=== PATIENT | male | born 1950 | race Two or more races ===

== ENCOUNTER 2016-11-23 09:19 | Day surgery (SDC) | payer MEDICARE, MEDICAID ==
[2016-11-23 10:03] LABS: HEMATOCRIT 38.1 % (37.9-51.0); HEMOGLOBIN 12.1 g/dL (13.5-17.0); HGB HCT DIFFERENCE -1.8; MEAN CORPUSCULAR HGB CONC 31.8 g/dL (32.0-36.0); MEAN CORPUSCULAR VOLUME 94 fl (80-97); RED BLOOD COUNT 4.04 10^6/uL (4.35-5.55); RED CELL DISTRIBUTION WIDTH 17.7 % (11.5-14.0); WHITE BLOOD COUNT 4.9 10^3/uL (4.0-10.5)
[2016-11-23 10:10] LABS: PARTIAL THROMBOPLASTIN TIME 31.3 SEC (23.5-35.8); PROTHROMBIN TIME 14.6 SEC (11.4-15.4)
[2016-11-23] MEDS ORDERED: LIDOCAINE 0.5% INJ-PF (5 MG/ML) 50 ML SDV ONE (10:17)
[2016-11-23] MEDS ORDERED: MIDAZOLAM 2 MG/2 ML INJ ONE (10:19)
[2016-11-23] MEDS ORDERED: FENTANYL CITRATE INJ/PF 100 MCG/2 ML AMPUL ONE (10:19)
[2016-11-23] MEDS ORDERED: HEPARIN SOD (PORCINE) 5,000 UNIT/ML 1 ML SYRINGE ONE (10:20)
[2016-11-23 10:46] LABS: BAND NEUTROPHILS % (MANUAL) 3 % (3-5); BASOPHILS % (MANUAL) 2 % (0-2); EOSINOPHILS % (MANUAL) 1 % (0-6); LYMPHOCYTES % (MANUAL) 14 % (13-45)
[2016-11-23 10:48] LABS: TOTAL CELLS COUNTED 100
[2016-11-23 10:53] LABS: ANISOCYTOSIS 1+; POLYCHROMASIA SLIGHT; TOXIC VACUOLATION PRESENT
[2016-11-23 10:54] LABS: ROULEAUX SLIGHT
--- NOTE | 2016-11-23 11:23 | PDOC H&P ---
General Chief Complaint: Fistula malfunction is noted on hemodialysis, suggestive of inflow stenosis. He was referred across for evaluation and and the correction. The goal is prolonged use of this tristan fistula. - Diagnosis (1) Diabetes type 2, uncontrolled Is this a Current Diagnosis?: Yes (2) Dialysis AV fistula malfunction Is this a Current Diagnosis?: Yes (3) ESRD (end stage renal disease) on dialysis Is this a Current Diagnosis?: Yes - Current Medications/Allergies Home Medications: Acetaminophen [Tylenol 325 mg Tablet] 650 mg PO Q4H PRN 04/06/16 Calcitriol 0.5 mcg PO DAILY 04/06/16 Carvedilol [Coreg 12.5 mg Tablet] 1 tab PO BID 04/06/16 Clonidine HCl [Clonidine HCl ER] 0.1 mg PO Q12 04/06/16 Folic Acid/Vitamin B Comp W-C [Nephrocaps Multiple Vitamin Capsule] 1 cap PO DAILY 04/06/16 Insulin Glargine,Hum.rec.anlog [Lantus] 10 unit SQ QPM 04/06/16 Isosorbide Mononitrate [Imdur 30 mg Tablet.er] 1 tab PO DAILY 04/06/16 Loperamide HCl [Imodium 2 mg Capsule] 1 cap PO Q8H PRN 04/06/16 Multivitamin/Iron/Folic Acid [Centrum Complete Multivit Tab] 1 tab PO DAILY Furosemide [Lasix 40 mg Tablet] 40 mg PO BID 09/09/16 Insulin Lispro [Humalog] 09/09/16 Allergies/Adverse Reactions: rosuvastatin [Rosuvastatin] Allergy (Verified 03/06/16 10:07) Past Medical History Cardiac Medical History: Reports: Congestive Heart Failure - Chronic CHF with EF of 30%, Myocardial Infarction - CHF, "POSSIBLE HEART ATTACK", Hyperlipidema, Hypertension, Peripheral Vascular Disease Denies: Coronary Artery Disease Pulmonary Medical History: Denies: Asthma, Bronchitis, Chronic Obstructive Pulmonary Disease (COPD), Pneumonia, Tuberculosis Neurological Medical History: Denies: Seizures Endocrine Medical History: Reports: Diabetes Mellitus Type 2 Renal/ Medical History: Reports: End Stage Renal Disease Musculoskeltal Medical History: Denies: Arthritis Psychiatric Medical History: Reports: Depression Hematology: Reports: Anemia Past Surgical History Past Surgical History: Reports: Cholecystectomy, Orthopedic Surgery - Bilateral BKA, Vascular Surgery - Left arm AV fistula Denies: Pacemaker Family History Family History: DM, Malignancy Parental Family History Reviewed: Yes Children Family History Reviewed: No Sibling(s) Family History Reviewed.: No Social History Smoking Status: Unknown if Ever Smoked Frequency of Alcohol Use: None Hx Recreational Drug Use: No Drugs: None Hx Prescription Drug Abuse: No Physical Exam Vital Signs: Temp Pulse Resp BP Pulse Ox 98.3 F 71 18 149/94 H 95 11/23/16 09:15 11/23/16 10:30 11/23/16 09:15 11/23/16 09:15 11/23/16 09:15 Intake & Output 11/22/16 11/23/16 11/24/16 06:59 06:59 06:59 Weight 74.843 kg Additional comments: A well-developed well-nourished male. Mildly decreased, thin body habitus. No acute distress. Eyes membranes is pink and moist, sclerae anicteric. Respiratory no shortness of breath. Breath sounds are normal and equal bilaterally. Cardiac: Heart sounds 1 and 2 heard, no murmurs. Upper extremities show normal range of movement and pulsatile to the radials. Normal capillary refill. A cephalic to radial fistula is appreciated. In the left upper extremity. Somewhat soft suggesting inflow stenosis. Psychiatric the patient is alert, oriented, judgment, memory, insight normal Impression/Plan Plan: In this patient with an established left cephalic to radial fistula in mid forearm, extreme arterial calcification with the next very unusually challenging anastomosis, improvement is hoped for by judicious dilatation. The risks include infection, bleeding, heart, lung complications, loss of fistula. The patient is agreeable.
--- NOTE | 2016-11-23 11:34 | PDOC DISCHARGE SUMMARY ---
Discharge Summary (SDC) - Discharge Final Diagnosis: #1 malfunctioning AV fistula. #2 end-stage renal disease on hemodialysis. #3 diabetes mellitus type II. #4 peripheral vascular disease. Date of Surgery: 11/23/16 Discharge Date: 11/23/16 Condition: Fair Treatment or Instructions: #1 activities within moderation encouraged. #2 follow up in my office by appointment in about 1 week. Call for appointment. #3 the wounds covered clean and dry until office visit. #4 hold off on school/work until evaluation in office. #5 may shower in 48 hours, keep operated area as dry as possible. #6 discharge from ambulatory to when ASU criteria met. #7 medications per medication reconciliation sheet. Discharge Diet: Diabetic Respiratory Treatments at Home: Deep Breathing/Coughing Discharge Activity: Activity As Tolerated Report the Following to Your Physician Immediately: Unusual Bleeding
--- NOTE | 2016-11-23 11:40 | Operative Report ---
Operative Report DATE OF SURGERY: 11/23/16 PREOPERATIVE DIAGNOSIS: #1 malfunctioning PermCath catheter. #2 end-stage renal disease on hemodialysis. #3 diabetes mellitus type II. #4 peripheral vascular disease POSTOPERATIVE DIAGNOSIS: #1 malfunctioning PermCath catheter. #2 end-stage renal disease on hemodialysis. #3 diabetes mellitus type II. #4 peripheral vascular disease OPERATION: #1 needle access into fistula. #2 angioplasty. #3 angiogram and interpretation. SURGEON: ANN NOGUEIRA WOOD BARKER: none ANESTHESIA: Moderate Sedation TISSUE REMOVED OR ALTERED: Not applicable. COMPLICATIONS: None ESTIMATED BLOOD LOSS: 2 mL. INTRAOPERATIVE FINDINGS: Of a well-founded left forearm radial artery to cephalic fistula established in about mid forearm. Relatively soft initially, suggesting inflow disease. Angiogram demonstrates stenosis in the perianastomotic segment. This was further confirmed by relative obstruction of the flow with the unexpanded 5 mm balloon . This was all graft resolved after dilatation with excellent flow into the fistula even with the uninflated catheter. Also the fistula which was somewhat soft initially firmed up to an appropriate extent. PROCEDURE: PROCEDURE: After verifying the procedure and having obtained informed consent, the patient's left arm and forearm were prepared with Chlorhexidine and draped out with sterile linen. Local anesthesia infiltrated. Percutaneous access into the fistula ,[retrograde], obtained about [15 cm] from the arteriovenous anastomosis using a micro puncture needle followed by micro puncture wire and then a micro puncture catheter. findings. Angioplasty was elected. A 0.035 [place] wire was inserted, and over this, a 6 Mal[place] short introducer was placed, this was followed by a [5] angioplasty balloon . Angioplasty was now done at the distal radial artery just before the anastomosis and over the anastomotic and perianastomotic segment. This was done very carefully up to 6 carlos sustained for 2 minutes. Angiogram demonstrated successful outcome. T Completion angiogram demonstrated [satisfactory result]. The instrumentation was now withdrawn over moderate pressure for 10 minutes. Dressings applied, procedure concluded. Exposure time: 0.4 minutes Radiation: 2 aleksandra per centimeter squared Contrast: 25 mL of Isovue-M 300 low osmolality. DICTATING PHYSICIAN: ANN TAVAREZ M.D. cc: ANN TAVAREZ M.D. ([id number]) >>
--- NOTE | 2016-11-23 12:14 | EKG REPORT ---
SEVERITY:- ABNORMAL ECG - SINUS RHYTHM LAFB FIRST DEGREE AV BLOCK LVH WITH IVCD, AND SECONDARY REPOL ABNRM : Confirmed by: Tucker Wade MD 23-Nov-2016 12:13:26
[2016-11-23 12:52] VITALS: BP 145/89
== END 2016-11-23 12:30 | disposition home or self-care (01) ==
LOC: CCL 09:19
PROVIDERS: ATTEND Surgery
PROC: 057F3DZ Dilation of Left Cephalic Vein with Intraluminal Device, Percutaneous Approach (ICD-10-PCS; principal; 2016-11-23)
DX: T82.858A Stenosis of other vascular prosthetic devices, implants and grafts, initial encounter (principal); Y83.2 Surgical operation with anastomosis, bypass or graft as the cause of abnormal reaction of the patient, or of later complication, without mention of misadventure at the time of the procedure; Z99.2 Dependence on renal dialysis; N18.6 End stage renal disease; E11.9 Type 2 diabetes mellitus without complications; Z79.899 Other long term (current) drug therapy; Z79.4 Long term (current) use of insulin; Z79.01 Long term (current) use of anticoagulants; I73.9 Peripheral vascular disease, unspecified
CPT/HCPCS: 96372; 36415; 85025; 85610; 85730; 36902; 71010; 93005; 93010; C1752; C1725; Q9967; C1769; J2250; J1644 ×2; J3010; J3490; 36901

== ENCOUNTER 2016-11-26 15:01 | Inpatient (IN) | payer MEDICARE, MEDICAID ==
[~2016-11-26 15:01] MED LIST: LIDOCAINE 2% INJ-PF (20 MG/ML) 10 ML AMPUL ONE; PHENYLEPHRINE HCL INJ/PF 10 MG/1 ML SDV ONE; SUCCINYLCHOLINE CHLORIDE INJ 200 MG/10 ML VIAL ONE
[2016-11-26] MEDS ORDERED: PROMETHAZINE HCL 25 MG TABLET PO ONE (15:40)
--- NOTE | 2016-11-26 15:57 | ER Document Report ---
ED Blood Pressure Problem - General TRAVEL OUTSIDE OF THE [place] IN LAST 30 DAYS: No - General Chief Complaint: Low Blood Pressure Stated Complaint: BLOOD PRESSURE PROBLEM Notes: Patient is a 66-year-old male who presents emergency Department, after completing dialysis at [facility], for hypotension. Patient has end-stage renal disease secondary to type II diabetes and receives dialysis every Wednesday and Wednesday. He was sent over today for hypotension after he completed dialysis. Otherwise patient is admitting to 2 days of nausea, vomiting, diarrhea and abdominal pain. Pain is generalized to all over without any specific location. Pain is described as contant ache with intermittent stabbing pain with distension. He states he has become more distended over the course over the past two days. In regards to his diarrhea, he states he has had 2-3 BM;s daily that have been loose without evidence of BRBPR or dark tarry stools. Decreased appetite and difficulty sleeping due to pain Past medical history significant for end-stage renal disease on HD T/R/Sa, congestive heart failure, diabetes type II, edema, essential hypertension, diverticulosis Business Process Analyst is Dr. Osei Cards is Dr. Marino in [place] PCP: Shirley Connolly (CARLOS BURRELL) - Related Data Allergies/Adverse Reactions: rosuvastatin [Rosuvastatin] Allergy (Verified 03/06/16 10:07) Past Medical History - General Information source: Patient, Outside Facility Records - Social History Smoking Status: Unknown if Ever Smoked Family History: DM, Malignancy - Past Medical History Cardiac Medical History: Reports: Hx Congestive Heart Failure - Chronic CHF with EF of 30%, Hx Heart Attack - CHF, "POSSIBLE HEART ATTACK", Hx Hypercholesterolemia, Hx Hypertension, Hx Peripheral Vascular Disease Denies: Hx Coronary Artery Disease Pulmonary Medical History: Denies: Hx Asthma, Hx Bronchitis, Hx COPD, Hx Pneumonia, Hx Tuberculosis Neurological Medical History: Denies: Hx Cerebrovascular Accident, Hx Seizures Endocrine Medical History: Reports: Hx Diabetes Mellitus Type 2 Renal/ Medical History: Reports: Hx End Stage Renal Disease, Hx Hemodialysis - Wednesday, Hx Peritoneal Dialysis - Previously on peritoneal dialysis, now on hemodialysis Musculoskeltal Medical History: Denies Hx Arthritis Psychiatric Medical History: Reports: Hx Depression Past Surgical History: Reports: Hx Cholecystectomy, Hx Orthopedic Surgery - Bilateral BKA, Hx Vascular Surgery - Left arm AV fistula. Denies: Hx Pacemaker - Immunizations Hx Diphtheria, Pertussis, Tetanus Vaccination: Yes Hx Pneumococcal Vaccination: 01/18/15 Review of Systems - Review of Systems Constitutional: No symptoms reported EENT: No symptoms reported Cardiovascular: No symptoms reported Respiratory: No symptoms reported Gastrointestinal: See HPI Genitourinary: No symptoms reported Male Genitourinary: No symptoms reported Musculoskeletal: No symptoms reported Skin: No symptoms reported Hematologic/Lymphatic: No symptoms reported Neurological/Psychological: No symptoms reported Physical Exam - Vital signs Vitals: BP 100/92 H 11/26/16 16:11 - Notes Notes: PHYSICAL EXAM GENERAL: Alert, interacts well. HEAD: Normocephalic, atraumatic. EYES: Pupils equal, round, and reactive to light. Extraocular movements intact. ENT: Oral mucosa moist, tongue midline. NECK: Full range of motion. Supple. Trachea midline. LUNGS: Clear to auscultation bilaterally, no wheezes, rales, or rhonchi. No respiratory distress. HEART: Regular rate and rhythm. No murmurs, gallops, or rubs. ABDOMEN: Firm, distended with superficial and deep tenderness to palpation. + guarding, rebound, and rigidity.. Bowel sounds present in all 4 quadrants. EXTREMITIES: Moves upper and lower extremities spontaneously. B/l BKA. No edema , radial and dorsalis pedis pulses 2/4 bilaterally. No cyanosis. NEUROLOGICAL: Alert and oriented x3. Normal speech. PSYCH: Normal affect, normal mood. SKIN: Warm, dry, normal turgor. No rashes or lesions noted. (CARLOS BURRELL) Course - Laboratory Result Diagrams: 11/26/16 17:25 11/26/16 16:30 - Diagnostic Test Radiology reviewed: Reports reviewed - D/w radiologist - Consults quann Time consulted: 16:50 Consulted provider: will come to ER busteed Time consulted: 16:50 Consulted provider: will come to ER - Re-evaluation Re-evalutation: 11/26/16 16:02 Independently evaluated patient patient does have diffusely tender abdomen with voluntarily guarding and rebound tenderness. Will perform CAT scan agree with plan (BRIAN BARFIELD) 11/26/16 16:02 Patient is a 66 year old male who is HDS, NAD and afebrile however patient is persistently hypotensive and in comparisson to vitals at [facility] he seems to be trending down. Given his diffuse tenderness, will send labs and CT of abd/pelvis 11/26/16 1630 Received a phone call from radiologist approximately 430pm to discuss CT A/P which reveals concern for perforated bowel given evidence of free abdominal air as well as air seen within the biliary system and portal vein/sup mesenteric vein. [place] since [id number] Patient initiated on sepsis protocol with orders for LR IVF as well as Vanc / Zosyn. Labs pending, given he is a difficult stick and HD dry after HD. I have consulted surgeon air conditioning specialist Dr. Edgar Haynes and Hospitalist Dr. nicol Tavarez for admission, phone call placed to Nephrology Dr. Duke Osei for HD consult if patient remains in our ICU he will require HD within 48 hours. I have reviewed this case up to this point with supervising physician Dr. Brian Barfield per APC guidelines and protocol 11/26/2016 1850 The patient has been evaluated at the bedside by Dr. Haynes and Dr. Tavarez. Plan as of now is to suspend current DNR status and to resume after the surgery , emergent exploratory laparotomy and dispo planning to be completed by Dr. Tavarez given findings of this procedure. I myself was present for discussion of the plan to which the patient and his express understanding. At this time, the patient admits to 4/5 abdominal pain but no nausea. Otherwise he states he feels okay given the current circumstances. 11/26/16 19:04 (CARLOS BURRELL) - Vital Signs Vital signs: Temp Pulse Resp BP Pulse Ox 100/92 H 11/26/16 16:11 - Laboratory Laboratory results interpreted by me: 11/26/16 11/26/16 11/26/16 16:30 17:25 17:25 Hgb 12.9 L MCHC 31.3 L RDW 17.1 H Plt Count 124 L Seg Neuts % (Manual) 82 H Band Neutrophils % 8 H Lymphocytes % (Manual) 3 L PT 17.0 H Sodium 136.9 L Chloride 93 L BUN 30 H Creatinine 3.67 H Est GFR ( Amer) 20 L Est GFR (Non-Af Amer) 17 L Glucose 209 H Total Protein 5.8 L Albumin 3.3 L Lipase 10.3 L - Consults rosmery Reason for consultation: 11/26/16 19:03 perforated bowel (CARLOS BURRELL) busteed Reason for consultation: 11/26/16 19:03 hospital admission (CARLOS BURRELL) Critical Care Note - Critical Care Note Total time excluding time spent on procedures (mins): 35 - Critical Care Note Comments: Critical care time for patient education on diagnosis and care planning, consults in the ED for hospitalist and surgery. Bedside family discussion for care plan. (CARLOS BURRELL) Discharge - Discharge Admitting Provider: Hospitalist - Discharge Clinical Impression: Perforated bowel Condition: Stable Disposition: ADMITTED INPATIENT Referrals: SHIRLEY CONNOLLY MD [Primary Care Provider] - Follow up as needed
[2016-11-26] MEDS ORDERED: ONDANSETRON HCL INJ/PF 4 MG/2 ML SDV IV ONE (16:04)
[2016-11-26 16:55] LABS: ALANINE AMINOTRANSFERASE 25 U/L (21-72); ALBUMIN 3.3 g/dL (3.5-5.0); ALKALINE PHOSPHATASE 85 U/L (38-126); ANION GAP 14 (5-19); ASPARTATE AMINO TRANSFERASE 18 U/L (17-59); BILIRUBIN,TOTAL 0.9 mg/dL (0.2-1.3); BLOOD UREA NITROGEN 30 mg/dL (7-20); CALCIUM 8.6 mg/dL (8.4-10.2); CARBON DIOXIDE 30 mmol/L (22-30); CHLORIDE 93 mmol/L (98-107); CREATININE RESULT 3.67 mg/dL (0.52-1.25); GLUCOSE 209 mg/dL (75-110); LIPASE 10.3 U/L (23-300); POTASSIUM 4.3 mmol/L (3.6-5.0); SODIUM 136.9 mmol/L (137-145); TOTAL PROTEIN 5.8 g/dL (6.3-8.2)
[2016-11-26] MEDS ORDERED: PIPERACILLIN/TAZOBACTAM 3.375 GM VIAL IV ONE (16:57)
[2016-11-26] MEDS ORDERED: VANCOMYCIN HCL INJ 1000 MG VIAL IV ONE (16:57)
[2016-11-26] MEDS ORDERED: NORMAL SALINE 1000 ML 1,000 ML IV PRN (17:00)
[2016-11-26] MEDS ORDERED: RINGERS SOLUTION,LACTATED 1,000 ML IV PRN ×2 (17:07→21:41)
[2016-11-26 17:41] LABS: HEMATOCRIT 41.3 % (37.9-51.0); HEMOGLOBIN 12.9 g/dL (13.5-17.0); HGB HCT DIFFERENCE -2.6; MEAN CORPUSCULAR HEMOGLOBIN 29.5 pg (27.0-33.4); MEAN CORPUSCULAR HGB CONC 31.3 g/dL (32.0-36.0); MEAN CORPUSCULAR VOLUME 94 fl (80-97); RED BLOOD COUNT 4.38 10^6/uL (4.35-5.55); RED CELL DISTRIBUTION WIDTH 17.1 % (11.5-14.0); WHITE BLOOD COUNT 7.6 10^3/uL (4.0-10.5)
[2016-11-26 17:45] LABS: PARTIAL THROMBOPLASTIN TIME 33.7 SEC (23.5-35.8)
[2016-11-26 18:01] LABS: BAND NEUTROPHILS % (MANUAL) 8 % (3-5); BASOPHILS % (MANUAL) 0 % (0-2); EOSINOPHILS % (MANUAL) 0 % (0-6); LYMPHOCYTES % (MANUAL) 3 % (13-45); TOTAL CELLS COUNTED 100
[2016-11-26 18:02] LABS: ANISOCYTOSIS 1+
[2016-11-26 18:03] LABS: BURR CELLS SLIGHT; OVALOCYTES 1+; POLYCHROMASIA SLIGHT
[2016-11-26] MEDS ORDERED: ACETAMINOPHEN 325 MG TABLET PO PRN (18:06)
[2016-11-26] MEDS ORDERED: ONDANSETRON HCL INJ/PF 4 MG/2 ML SDV IV PRN (18:06)
[2016-11-26] MEDS ORDERED: IPRATROPIUM/ALBUTEROL 0.5-2.5 MG/3 ML AMPUL NEB PRN (18:06)
[2016-11-26] MEDS ORDERED: VANCOMYCIN HCL 0 MG in DEXTROSE 5%-WATER 250 ML IV NR (18:15)
--- NOTE | 2016-11-26 18:28 | PDOC H&P ---
History of Present Illness Admission Date/PCP: SHIRLEY CONNOLLY Patient complains of: Abdominal pain and low blood pressure History of Present Illness: RADHA HURTADO JR is a 66 year old male who is a dialysis patient on Wednesday and Saturdays who also has a history of congestive heart failure and diabetes. The patient presented to dialysis today and during dialysis develop some relative hypotension and the patient reports that over the last 2 days she's had abdominal pain started out with periumbilical pain. Patient reports the pain was mild on Wednesday however became progressively worse and now he rates it as 9 out of 10. He has had some associated nausea vomiting diarrhea for the last 2 days also. He reports that he's not had any melena or bright red blood per rectum but has had some dark watery diarrhea. He denies having any chest pain or shortness of breath associated with this. Patient is also noted anorexia no chills or fevers. The patient because of abdominal pain had a CT scan done in the emergency room which shows air in the bowel wall as well as the portal system. It appears that this patient most likely has had a perforated viscus and the plan is for him to go to surgery emergently. Past Medical History Cardiac Medical History: Reports: Congestive Heart Failure - Chronic CHF with EF of 30%, Myocardial Infarction - CHF, "POSSIBLE HEART ATTACK", Hyperlipidema, Hypertension, Peripheral Vascular Disease Denies: Coronary Artery Disease Pulmonary Medical History: Denies: Asthma, Bronchitis, Chronic Obstructive Pulmonary Disease (COPD), Pneumonia, Tuberculosis Neurological Medical History: Denies: Seizures Endocrine Medical History: Reports: Diabetes Mellitus Type 2 Renal/ Medical History: Reports: End Stage Renal Disease Malignancy Medical History: Reports: None GI Medical History: Reports: Other - Hepatitis C Musculoskeltal Medical History: Denies: Arthritis Psychiatric Medical History: Reports: Depression Hematology: Reports: Anemia Past Surgical History Past Surgical History: Reports: Cholecystectomy, Orthopedic Surgery - Bilateral BKA, Vascular Surgery - Left arm AV fistula Denies: Pacemaker Social History Information Source: Patient Lives with: Family Smoking Status: Former Smoker Frequency of Alcohol Use: None Hx Recreational Drug Use: No Drugs: None Hx Prescription Drug Abuse: No - Advance Directive Resuscitation Status: Do Not Resuscitate - The patient and his both reiterated his desire to be a DO NOT RESUSCITATE. Family History Family History: CAD, DM, Malignancy Parental Family History Reviewed: Yes Children Family History Reviewed: No Sibling(s) Family History Reviewed.: No Medication/Allergy Home Medications: Acetaminophen [Tylenol 325 mg Tablet] 650 mg PO Q4H PRN 04/06/16 Calcitriol 0.5 mcg PO DAILY 04/06/16 Carvedilol [Coreg 12.5 mg Tablet] 1 tab PO BID 04/06/16 Clonidine HCl [Clonidine HCl ER] 0.1 mg PO Q12 04/06/16 Folic Acid/Vitamin B Comp W-C [Nephrocaps Multiple Vitamin Capsule] 1 cap PO DAILY 04/06/16 Insulin Glargine,Hum.rec.anlog [Lantus] 10 unit SQ QPM 04/06/16 Isosorbide Mononitrate [Imdur 30 mg Tablet.er] 1 tab PO DAILY 04/06/16 Loperamide HCl [Imodium 2 mg Capsule] 1 cap PO Q8H PRN 04/06/16 Multivitamin/Iron/Folic Acid [Centrum Complete Multivit Tab] 1 tab PO DAILY Lidocaine/Prilocaine [Emla Cream] 30 gm TP ONCALL PRN #1 cream.gm. MDD once Furosemide [Lasix 40 mg Tablet] 40 mg PO BID 09/09/16 Insulin Lispro [Humalog] 09/09/16 Allergies/Adverse Reactions: rosuvastatin [Rosuvastatin] Allergy (Verified 03/06/16 10:07) Review of Systems Constitutional: PRESENT: chills, weakness. ABSENT: weight gain, weight loss Eyes: ABSENT: visual disturbances Ears: ABSENT: hearing changes Cardiovascular: ABSENT: chest pain, dyspnea on exertion, edema, orthropnea, palpitations Respiratory: ABSENT: cough, hemoptysis Gastrointestinal: PRESENT: as per HPI Genitourinary: PRESENT: other - Patient is a dialysis patient and makes a small amount of urine daily still. Integumentary: ABSENT: rash, wounds Neurological: ABSENT: abnormal gait, abnormal speech, confusion, dizziness, focal weakness, syncope Psychiatric: ABSENT: anxiety, depression Endocrine: ABSENT: cold intolerance, heat intolerance, polydipsia, polyuria Hematologic/Lymphatic: ABSENT: easy bleeding, easy bruising Physical Exam Vital Signs: Temp Pulse Resp BP Pulse Ox 100/92 H 11/26/16 16:11 General appearance: PRESENT: no acute distress Head exam: PRESENT: atraumatic, normocephalic Eye exam: PRESENT: conjunctiva pink, EOMI, PERRLA, scleral icterus Ear exam: PRESENT: normal external ear exam Mouth exam: PRESENT: moist, tongue midline Neck exam: ABSENT: carotid bruit, JVD, lymphadenopathy, thyromegaly Respiratory exam: PRESENT: clear to auscultation kyree. ABSENT: rales, rhonchi, wheezes Cardiovascular exam: PRESENT: RRR. ABSENT: diastolic murmur, rubs, systolic murmur GI/Abdominal exam: PRESENT: diminished bowel sounds, distended, firm, hypoactive bowel sounds, rebound, tenderness - Periumbilical and lower abdomen tenderness. ABSENT: guarding Rectal exam: PRESENT: deferred Extremities exam: PRESENT: other - Bilateral BKA Neurological exam: PRESENT: alert, awake, oriented to person, oriented to place , oriented to time, oriented to situation Psychiatric exam: PRESENT: appropriate affect Skin exam: PRESENT: dry, intact, warm. ABSENT: cyanosis, rash Results Laboratory Results: 11/26/16 17:25 11/26/16 16:30 11/26/16 11/26/16 11/26/16 16:30 17:25 17:25 WBC 7.6 RBC 4.38 Hgb 12.9 L Hct 41.3 MCV 94 MCH 29.5 MCHC 31.3 L RDW 17.1 H Plt Count 124 L Seg Neutrophils % Not Reportable Lymphocytes % Not Reportable Monocytes % Not Reportable Eosinophils % Not Reportable Basophils % Not Reportable Absolute Neutrophils Not Reportable Absolute Lymphocytes Not Reportable Absolute Monocytes Not Reportable Absolute Eosinophils Not Reportable Absolute Basophils Not Reportable Sodium 136.9 L Potassium 4.3 Chloride 93 L Carbon Dioxide 30 Anion Gap 14 BUN 30 H Creatinine 3.67 H Est GFR ( Amer) 20 L Est GFR (Non-Af Amer) 17 L Glucose 209 H Lactic Acid 1.2 Calcium 8.6 Total Bilirubin 0.9 AST 18 ALT 25 Alkaline Phosphatase 85 Total Protein 5.8 L Albumin 3.3 L Lipase 10.3 L Impressions: Abdomen/Pelvis CT 11/26/16 16:04 IMPRESSION: Multiple dilated loops of bowel with fecalized material. There also appears to be air within the wall these all concerning for pneumatosis. There is also air seen within the biliary system and the portal vein/ superior mesenteric vein. These findings concerning for bowel necrosis which may be secondary to long-term obstruction and/or acute ischemia. There is also multiple lobules of air is seen within the abdomen concerning for free intra- abdominal air. The patient is noted to have extensive vascular calcifications throughout the abdomen the evaluation vascular system with limited without contrast. There also appears to be a point of narrowing seen in the distal ileum which could represent a transition point from obstruction. Assessment & Plan - Diagnosis (1) Sepsis Is this a current diagnosis for this admission?: YesPlan: The patient has a perforated viscus with air in the bowel wall as well as in the portal system. The general surgeon has evaluated the patient and agrees he needs emergent surgery and the patient will be taken to the OR immediately. This was discussed with the family that there is at least a 70% rate even with surgery. They are aware and are agreeable to go to surgery given that the alternative is almost certain 100% rate. Blood cultures have been obtained and we will give vancomycin, Zosyn, Flagyl. He is a dialysis patient so we will plan on transfer to a tertiary facility if he tolerates surgery. (2) Ischemic bowel disease Is this a current diagnosis for this admission?: YesPlan: Patient has free air in the peritoneum as well as air in the bowel wall and the portal system. Patient is to go to the OR urgently. He is getting IV fluids currently but he does have history of congestive heart failure and is a dialysis patient. He did have dialysis earlier today. (3) ESRD on hemodialysis Is this a current diagnosis for this admission?: YesPlan: The patient normally gets dialysis on Wednesday and Saturdays. Handouts a day but they stopped early because blood pressure dropped low. He typically runs around 150s systolically and the pressure dropped down to 90. (4) Diabetes type 2, uncontrolled Is this a current diagnosis for this admission?: YesPlan: We'll cover with sliding scale insulin. (5) Hypertension Is this a current diagnosis for this admission?: YesPlan: We'll hold and hypertensives for now given the fact that he has sepsis. (6) Anemia in chronic kidney disease Is this a current diagnosis for this admission?: Yes - Time Time Spent: 50 to 70 Minutes - Inpatient Certification Medical Necessity: Need for IV Antibiotics, Need for Surgery - Plan Summary Plan Summary: We'll admit to the intensive care unit after surgery and possibly transfer to a tertiary center afterwards.
[2016-11-26] MEDS ORDERED: FENTANYL CITRATE INJ/PF 250 MCG/5 ML AMPULE ONE (18:34)
[2016-11-26] MEDS ORDERED: KETAMINE HCL INJ 500 MG/10 ML VIAL ONE (18:34)
[2016-11-26] MEDS ORDERED: MORPHINE SULFATE 10 MG/ML INJ IV ONE (18:34)
[2016-11-26] MEDS ORDERED: HYDROMORPHONE HCL INJ/PF 2 MG/ML AMPULE ONE (18:34)
[2016-11-26] MEDS ORDERED: MIDAZOLAM 2 MG/2 ML INJ ONE (18:34)
[2016-11-26] MEDS ORDERED: EPHEDRINE SULFATE INJ 50 MG/1 ML AMPULE ONE (18:35)
[2016-11-26] MEDS ORDERED: PROPOFOL INJ 200 MG/20 ML VIAL IV ONE (18:35)
[2016-11-26] MEDS ORDERED: DEXMEDETOMIDINE INJ 80 MCG/20 ML VIAL IV ONE (18:35)
[2016-11-26] MEDS ORDERED: GLUCAGON,HUMAN RECOMB 1 MG INJ IM PRN (18:38)
[2016-11-26] MEDS ORDERED: DEXTROSE 40% GEL 15 GM TUBE PO PRN ×2 (18:38)
[2016-11-26] MEDS ORDERED: INSULIN REG, HUMAN 100 UNIT/ML 3 ML VIAL (PYX) SUBCUT PRN (18:38)
[2016-11-26] MEDS ORDERED: DEXTROSE 50%-WATER 25 GM/50 ML DISP.SYRIN IV PRN ×2 (18:38)
--- NOTE | 2016-11-26 18:45 | PDOC CONSULTATION ---
History of Present Illness Admission Date/PCP: SHIRLEY CONNOLLY History of Present Illness: RADHA HURTADO JR is a 66 year old male with hepatitis C, ischemic cardiomyopathy, diastolic dysfunction with reduced ejection fraction, mild pulmonary hypertension, diabetes status post bilateral BKAs, hyperlipidemia , hypertension, congestive heart failure, nephrolithiasis and end-stage renal disease on dialysis Wednesday//Wednesday. Today during dialysis he had hypertension and was sent to the ER. He also reveals that he's had increasing abdominal pain since Wednesday. He reports the pain is across the central abdomen. It is sharp. It is made worse with coughing or movement. 07/18. Sharp. Constant. Last ate at noon today. 2 chicken nuggets and less than half of a soda. He's had 3 days of diarrhea. He describes it as dark watery, unsure if melanotic. No bright red blood. Nausea and small volume emesis. Also reports fever, extreme weakness, poor sleep and loss of appetite over the same today. Occasional dry cough. Denies chills or shakes. Denies seizures, tremors, lightheadedness, dizziness, chest pain, shortness of breath, rash, itching, swelling, sinus drainage. Past Medical History Cardiac Medical History: Reports: Congestive Heart Failure - Chronic CHF with EF of 30%, Myocardial Infarction - CHF, "POSSIBLE HEART ATTACK", Hyperlipidema, Hypertension, Peripheral Vascular Disease, Other - Ischemic cardiomyopathy, diastolic dysfunction, reduced ejection fraction. Pulmonary Medical History: Reports: Other - Mild pulmonary hypertension. Endocrine Medical History: Reports: Diabetes Mellitus Type 2 Renal/ Medical History: Reports: End Stage Renal Disease, Nephrolithiasis Malignancy Medical History: Reports: None GI Medical History: Reports: Hepatitis - Hepatitis C Musculoskeltal Medical History: Reports: Other - Bilateral BKAs Psychiatric Medical History: Reports: Depression Hematology: Reports: Anemia Infectious Medical History: Reports: Hepatitis C Past Surgical History Past Surgical History: Reports: Cholecystectomy - Open cholecystectomy, Orthopedic Surgery - Bilateral BKA, Vascular Surgery - Left arm AV fistula, Other - Previous peritoneal dialysis catheter. Denies: Pacemaker Social History Information Source: Patient Lives with: Spouse/Significant other Smoking Status: Never Smoker Frequency of Alcohol Use: None - Previously a heavy drinker. None in over 5 years. Hx Recreational Drug Use: No Drugs: None Hx Prescription Drug Abuse: No - Advance Directive Resuscitation Status: Do Not Resuscitate - The patient and his both reiterated his desire to be a DO NOT RESUSCITATE. Family History Family History: CAD, DM, Malignancy, Other - Congestive heart failure Parental Family History Reviewed: Yes Children Family History Reviewed: Yes Sibling(s) Family History Reviewed.: Yes Medication/Allergy Home Medications: Acetaminophen [Tylenol 325 mg Tablet] 650 mg PO Q4H PRN 04/06/16 Calcitriol 0.5 mcg PO DAILY 04/06/16 Carvedilol [Coreg 12.5 mg Tablet] 1 tab PO BID 04/06/16 Clonidine HCl [Clonidine HCl ER] 0.1 mg PO Q12 04/06/16 Folic Acid/Vitamin B Comp W-C [Nephrocaps Multiple Vitamin Capsule] 1 cap PO DAILY 04/06/16 Insulin Glargine,Hum.rec.anlog [Lantus] 10 unit SQ QPM 04/06/16 Isosorbide Mononitrate [Imdur 30 mg Tablet.er] 1 tab PO DAILY 04/06/16 Loperamide HCl [Imodium 2 mg Capsule] 1 cap PO Q8H PRN 04/06/16 Multivitamin/Iron/Folic Acid [Centrum Complete Multivit Tab] 1 tab PO DAILY Lidocaine/Prilocaine [Emla Cream] 30 gm TP ONCALL PRN #1 cream.gm. MDD once Furosemide [Lasix 40 mg Tablet] 40 mg PO BID 09/09/16 Insulin Lispro [Humalog] 09/09/16 Allergies/Adverse Reactions: rosuvastatin [Rosuvastatin] Allergy (Verified 03/06/16 10:07) Review of Systems All systems: reviewed and no additional remarkable complaints except as stated Physical Exam Vital Signs: Temp Pulse Resp BP Pulse Ox 100/92 H 11/26/16 16:11 General appearance: PRESENT: mild distress Eye exam: PRESENT: EOMI, scleral icterus Mouth exam: PRESENT: dry mucosa, tongue midline Teeth exam: PRESENT: poor dentation Neck exam: ABSENT: JVD, lymphadenopathy, tenderness, thyromegaly Respiratory exam: PRESENT: clear to auscultation kyree Cardiovascular exam: PRESENT: RRR GI/Abdominal exam: PRESENT: distended, guarding, soft, tenderness - Severe tenderness to light palpation diffusely throughout abdomen.. ABSENT: hernia - No painful groin bulges Extremities exam: PRESENT: other - Bilateral BKA's Neurological exam: PRESENT: alert, oriented to person, oriented to place, oriented to time, oriented to situation. ABSENT: motor sensory deficit Psychiatric exam: PRESENT: appropriate affect, normal mood Skin exam: PRESENT: jaundice Results Laboratory Results: 11/26/16 17:25 11/26/16 16:30 11/26/16 11/26/16 11/26/16 16:30 17:25 17:25 WBC 7.6 RBC 4.38 Hgb 12.9 L Hct 41.3 MCV 94 MCH 29.5 MCHC 31.3 L RDW 17.1 H Plt Count 124 L Seg Neutrophils % Not Reportable Lymphocytes % Not Reportable Monocytes % Not Reportable Eosinophils % Not Reportable Basophils % Not Reportable Absolute Neutrophils Not Reportable Absolute Lymphocytes Not Reportable Absolute Monocytes Not Reportable Absolute Eosinophils Not Reportable Absolute Basophils Not Reportable Sodium 136.9 L Potassium 4.3 Chloride 93 L Carbon Dioxide 30 Anion Gap 14 BUN 30 H Creatinine 3.67 H Est GFR ( Amer) 20 L Est GFR (Non-Af Amer) 17 L Glucose 209 H Lactic Acid 1.2 Calcium 8.6 Total Bilirubin 0.9 AST 18 ALT 25 Alkaline Phosphatase 85 Total Protein 5.8 L Albumin 3.3 L Lipase 10.3 L Impressions: Abdomen/Pelvis CT 11/26/16 16:04 IMPRESSION: Multiple dilated loops of bowel with fecalized material. There also appears to be air within the wall these all concerning for pneumatosis. There is also air seen within the biliary system and the portal vein/ superior mesenteric vein. These findings concerning for bowel necrosis which may be secondary to long-term obstruction and/or acute ischemia. There is also multiple lobules of air is seen within the abdomen concerning for free intra- abdominal air. The patient is noted to have extensive vascular calcifications throughout the abdomen the evaluation vascular system with limited without contrast. There also appears to be a point of narrowing seen in the distal ileum which could represent a transition point from obstruction. Status: Image reviewed by me Assessment & Plan - Plan Summary Plan Summary: We discussed that the combination of portal venous gas and pneumatosis intestinalis carries a mortality of nearly 100% if not operated on and still approximately 75% when operated on emergently. We discussed his DO NOT RESUSCITATE status. He does not want to be resuscitated if he undergoes cardiac arrest on the table. He does want to be intubated for surgery and the short-term future. We discussed exploratory laparotomy, possible bowel resection, possible ostomy in detail. Questions were answered. We discussed the risks, benefits and alternatives including , heart attack, stroke, blood clots in the legs, blood clots in lungs, pneumonia, bleeding, infection, hernia, bile leak, long-term diarrhea, damage to surrounding structures such as bladder, bowels, blood vessels, ureters, etc. Understands and wishes to proceed. Reviewed the case with anesthesiology, Dr. Kitchen. Images reviewed as well as radiologist report.
[2016-11-26] MEDS ORDERED: PIPERACILLIN SODIUM/TAZOBACTAM 3.375 GM in NORMAL SALINE 100 ML IV ONE (19:00)
[2016-11-26] MEDS ORDERED: CITRIC ACID/SODIUM CITRATE ORAL SOLN 15 ML UDCUP ONE (20:20)
[2016-11-26] MEDS ORDERED: PHARMACY COMMUNICATION ORDER MC NR (21:45)
[2016-11-26] MEDS ORDERED: NOREPINEPHRINE BITARTRATE INJ/PF 4 MG/4 ML SDV IV ONE (21:53)
[2016-11-26] MEDS ORDERED: ACETAMINOPHEN 325 MG TABLET NG PRN (21:58)
[2016-11-26] MEDS ORDERED: DEXTROSE 40% GEL 15 GM TUBE NG PRN ×2 (21:59→22:00)
[2016-11-26] MEDS ORDERED: FAMOTIDINE INJ/PF 20 MG/2 ML SDV IV SCH (22:00)
[2016-11-26] MEDS ORDERED: PANTOPRAZOLE SODIUM 40 MG VIAL IV SCH (22:00)
[2016-11-26 23:38] VITALS: BP 101/70
[2016-11-26] MEDS ORDERED: DEXTROSE 5%-WATER 250 ML with NOREPINEPHRINE BITARTRATE 4 MG IV PRN ×2 (23:58)
[2016-11-27] MEDS ORDERED: METRONIDAZOLE 500 MG/NS RTU 100 ML IV SCH
[2016-11-27] MEDS ORDERED: PIPERACILLIN SODIUM/TAZOBACTAM 3.375 GM in NORMAL SALINE 100 ML IV SCH ×2
[2016-11-27] MEDS ORDERED: NORMAL SALINE 500 ML IV ONE (00:15)
--- NOTE | 2016-11-27 08:48 | OPERATIVE REPORT E ---
Operative Report NAME: RADHA HURTADO : 1950 AGE: 66Y DATE OF SURGERY: 11/26/2016 ROOM: 607 PREOPERATIVE DIAGNOSIS: Septic shock. POSTOPERATIVE DIAGNOSIS: Septic shock. PROCEDURE: 1. Focused ultrasound of the left neck. 2. Ultrasound-directed insertion of triple-lumen central venous access catheter. SURGEON: JOSI BATES M.D. ANESTHESIA: General. COMPLICATIONS: None. ESTIMATED BLOOD LOSS: Scant. DRAINS: None. TISSUE REMOVED: None. SUMMARY OF PROCEDURE: The patient had undergone general anesthesia. He was placed in the Trendelenburg position. The left internal jugular vein was felt to be suitable for cannulation. Using Seldinger technique, triple-lumen central venous access catheter was inserted into the left internal jugular vein. There was excellent blood flow through all 3 lumens. The catheter was flushed with heparinized saline and secured to the skin with 2-0 silk suture, Biopatch and dressing applied. The patient tolerated the procedure well. The remainder of the operation was completed and dictated by Dr. Haynes. DICTATING PHYSICIAN: JOSI BATES M.D. [id number] PHY#: [id number] ID: [id number] JOB#: [id number] ACCT: [id number] cc:JOSI BATES M.D. >
[2016-11-27] MEDS ORDERED: CALCITRIOL 0.25 MCG CAPSULE PO SCH (10:00)
[2016-11-27] MEDS ORDERED: (PENDING PHARMACY ID) (Calcitriol [Calcitriol] 0.5 MCG) PO SCH (10:00)
--- NOTE | 2016-11-27 10:24 | Operative Report ---
Operative Report DATE OF SURGERY: 11/26/16 PREOPERATIVE DIAGNOSIS: Acute abdomen, portal venous gas, free air. POSTOPERATIVE DIAGNOSIS: Perforated sigmoid diverticulitis. OPERATION: 1. Left internal jugular vein central venous line placement with ultrasound guidance by Dr. Kitchen. 2. Exploratory laparotomy with extended Silvestre's procedure: Left and sigmoid colectomy with end colostomy, including mobilization of splenic flexure. Dr. Haynes primary surgeon, Dr. Kitchen anesthesiologist assistant certified. SURGEON: TAYLOR HAYNES 1ST HEEL PRICKER: JOSI KITCHEN ANESTHESIA: GA TISSUE REMOVED OR ALTERED: Sigmoid and left colon. COMPLICATIONS: None noted ESTIMATED BLOOD LOSS: 100 mL INTRAOPERATIVE FINDINGS: 1. Perforated sigmoid diverticulitis, with abdominal sepsis and contamination. 2. Globally hypoperfused, dilated small intestine. PROCEDURE: The patient was brought to the operative suite and placed supine on the OR table. Timeout was performed. Antibiotics were administered. The patient was induced and intubated and maintained on endotracheal anesthesia throughout the procedure. Holamn catheter was placed: Although the patient is on dialysis he does make some urine daily. Dr. Kitchen performed placement of a left internal jugular vein central venous line with ultrasound guidance. Please see his dictation for this portion of the procedure. A chest x-ray was obtained at the end of the case and confirmed proper placement of the central venous line. Next patient was reprepped and redraped to expose the abdomen. A midline incision was made from the xiphoid process down to the umbilicus, which was later extended down to the pubic symphysis wants perforated sigmoid diverticulitis was discovered. The incision was made with a scalpel and continued down with cautery to the fascia. The fascia was divided with cautery then elevated with Jose's. The abdominal cavity was then entered bluntly with a Crile forceps. There were adhesions of bowel and omentum which were swept away. The incision was then extended over a finger to protect underlying contents. Immediately on entering the abdomen the findings were purulent contamination, murky ascites, distended, hypo-perfused appearing loops of small bowel. As the abdomen was further explored, a left lower quadrant mass with loops of small bowel stuck down to indurated sigmoid colon with a purulent rind around the small abscess cavity was discovered. The loops of small bowel were gently dissected off this sigmoid phlegmon. An NG tube was placed and its placement was confirmed with palpation of the stomach. The dome of the liver was adhesed to the undersurface of the diaphragm. The entire left colon and sigmoid colon and most proximal portion of the rectum was involved with significant diverticular changes and was pale and diseased appearing. Based on the appearance of the left and sigmoid colon being unhealthy-appearing and having diverticular changes limiting ostomy options, the decision was made to perform a left and sigmoid colectomy. The left colon and sigmoid colon were mobilized by taking down attachments in the left paracolic gutter along the white line of Toldt, and further using blunt dissection and electrocautery to mobilize these structures. The sigmoid colon was mobilized down into the rectum. The rectum was divided at a point where the bowel wall became softer and disease free. The proximal rectum was mobilized by scoring the peritoneum with cautery and then a gentle blunt dissection while elevating the rectum. A rent in the mesentery was made and the rectum was divided with the LA curved contour stapler, green load. The interior of the rectosigmoid was then divided adjacent to the bowel using LigaSure device. The division of the mesentery continued proximally up the entire left colon. The splenic flexure was then mobilized with a combination of electrocautery and sharp and blunt dissection. The distal transverse colon was much more healthy appearing with minimal diverticuli and was suitable to use for an ostomy. A short section of mesentery to the splenic flexure was divided with LigaSure allowing the intended colostomy section easy mobilization above the level of the abdominal wall. The colon was then divided at the splenic flexure using another load of the contour stapler. The abdomen was irrigated and eventually the effluent returned clear. The ostomy tract was created by excising the skin disc over the left upper quadrant overlying the rectus muscles. Dissection was then continued down through the subcutaneous fat to the fascia. The fascia was divided with cautery in a cruciate fashion. The muscle was split bluntly. The posterior rectus sheath fascia was divided. The tract was dilated with 2 fingers. A Ewell was placed on the staple line of the intended ostomy segment was brought through the abdominal wall ostomy tract to rest on its own merit without tension. Attention was turned to the small bowel. At the beginning the case it had significant segments with a pallor as well as with patchy areas of light and dark erythema. It was also extremely dilated. After resting intra-abdominally throughout the case, the appearance was much healthier. No areas of necrosis or ischemia were noted. It was still dilated and therefore it was milked back from the terminal ileum to the ligament of Treitz. Anesthesia was able to remove approximately 2 L of fluid via the NG tube. The rectum was inspected and irrigated. The rest the operative field was inspected and irrigated. The rest the abdomen was inspected and irrigated. Everything was intact. At this point Dr. Kitchen excused himself from the case. Preliminary lap needle sponge counts were accurate. 15 Palestinian round drains were placed. Both drains exited from the left lower quadrant; the lower drain was placed in the pelvis and the upper drain was placed in the left paracolic gutter tracking proximally towards the splenic flexure. Both of these were sewn in place with 3-0 Vicryl. The midline incision was then closed with a looped PDS. One working inferior to superior, one working superior to inferior and tying below the umbilicus. The midline wound was irrigated and then closed loosely with lolis. Half inch iodoform alessandra were placed between the lolis. A sterile tolerance was placed over the midline incision. Attention was turned to maturing the ostomy. This was done at the 8 cardinal points with 3-0 chromic. Ostomy tract was digitized and a pinky extended down through the fascia into the abdomen easily. The ostomy was healthy appearing. An ostomy appliance was fitted. All lap and instrument counts were correct. A midline dressing was placed. The patient was on a pressor throughout the case but remained stable. The patient was taken to ICU to wait transfer to tertiary care [facility] in [place]. I had spoken with the accepting physician towards the end of the case and described the patient, the operative findings and the surgery performed in detail.
--- NOTE | 2016-11-27 10:42 | PDOC TRANSFER SUMMARY ---
General Admission Date/PCP: 11/26/16 18:51 SHIRLEY CONNOLLY Transfer Date: 11/26/16 Accepting Facility: [facility] Resuscitation Status: Do Not Resuscitate - The patient and his both reiterated his desire to be a DO NOT RESUSCITATE. - Transfer Medications Transfer Medications: The patient was maintained on crystalloid fluid and a pressor at the time of [facility] transfer. - Allergies Allergies/Adverse Reactions: rosuvastatin [Rosuvastatin] Allergy (Verified 03/06/16 10:07) - Diet/Activity Discharge Diet: Other (Comments) - Nothing by mouth Discharge Activity: Other - Intubated, sedated time of transfer. Hospital Course Hospital Course: 66-year-old male with end-stage renal disease on dialysis, diabetes mellitus, bilateral BKA's, congestive heart failure, hypertension, hyperlipidemia, diastolic dysfunction, decreased ejection fraction, diffuse vasculopathy, hepatitis C. He presented to the emergency room on the evening of 11/26/2016 after having dialysis terminated prematurely due to hypotension that day. Reported 2 days of worsening abdominal pain. CT scan revealed portal venous gas, free air, free fluid, fecalization of the small bowel, pneumatosis intestinalis, and dilated loops of small bowel. Exam revealed acute abdomen. Treatment alternatives were discussed with the patient. We discussed very candidly that nonoperative treatment carried a 99.9% chance of and operative treatment carried a 75% chance of . The patient chose to undergo exploratory laparotomy, possible bowel resection, possible ostomy. Antibiotics, IV fluid resuscitation and pressors were initiated to support the patient. He is moved to the operating room and a central line was placed and exploratory laparotomy was performed. Perforated diverticular disease was noted. An extended Silvestre's procedure involving resection of the left colon and sigmoid colon with mobilization of the splenic flexure and creation of an end colostomy was performed. Starting prior to surgery, efforts to transfer the patient immediately following surgery were initiated. The patient was accepted to [facility]. Following surgery the patient was briefly to ICU and then was transferred via air care to [facility]. I believe the patient left before midnight on 2016, although he may have left shortly after midnight. I spoke with the accepting surgeon in detail prior to transfer. Physical Exam Vital Signs: Temp Pulse Resp BP Pulse Ox 97.5 F 79 15 101/70 100 11/26/16 23:14 11/26/16 23:14 11/26/16 23:14 11/26/16 23:14 11/26/16 23:14 Intake & Output 11/26/16 11/27/16 11/28/16 06:59 06:59 06:59 Intake Total 1100 Output Total 1100 Balance 0 General appearance: PRESENT: other - The patient was intubated, sedated, maintained on IV fluids and a pressor, but with stable vitals at the time of discharge. Just after arrival in the ICU, he was briefly hypotensive. Once the transition from anesthesia to ICU care was made and pressor was reinitiated , blood pressures were able to be maintained at or above systolic 90/map 65. Head exam: PRESENT: normocephalic, other - ET tube, NG tube. Left neck 7 Slovak triple-lumen catheter. Mouth exam: PRESENT: other - ET tube Respiratory exam: PRESENT: other - On the ventilator, 100% saturations on 50% FiO2. GI/Abdominal exam: PRESENT: soft, other - Fresh surgical dressing. Ostomy appliance. 2 left lower quadrant drains, the lower into the pelvis, the upper into the left paracolic gutter extending proximally towards the splenic flexure. Extremities exam: PRESENT: other - Bilateral BKAs Neurological exam: PRESENT: other - Intubated sedated Results Impressions: Chest X-Ray 11/26/16 00:00 IMPRESSION: Interval placement of lines and tubes. Abdomen/Pelvis CT 11/26/16 16:04 IMPRESSION: Multiple dilated loops of bowel with fecalized material. There also appears to be air within the wall these all concerning for pneumatosis. There is also air seen within the biliary system and the portal vein/ superior mesenteric vein. These findings concerning for bowel necrosis which may be secondary to long-term obstruction and/or acute ischemia. There is also multiple lobules of air is seen within the abdomen concerning for free intra- abdominal air. The patient is noted to have extensive vascular calcifications throughout the abdomen the evaluation vascular system with limited without contrast. There also appears to be a point of narrowing seen in the distal ileum which could represent a transition point from obstruction. Plan Discharge Plan: transfer via air care to [facility]
--- NOTE | 2016-11-27 11:17 | PDOC TRANSFER SUMMARY ---
General Admission Date/PCP: 11/26/16 18:51 SHIRLEY CONNOLLY Transfer Date: 11/26/16 Accepting Facility: [facility] Resuscitation Status: Do Not Resuscitate - The patient and his both reiterated his desire to be a DO NOT RESUSCITATE. - Transfer Diagnosis (1) Sepsis Diagnosis Summary: Secondary to perforated viscus and ischemic bowel disease. Patient had partial colectomy and was transferred to [facility]. Patient was treated with vancomycin, Zosyn, Flagyl. (2) Ischemic bowel disease Diagnosis Summary: Patient underwent partial colectomy by Dr. Haynes (3) ESRD on hemodialysis Diagnosis Summary: The patient had dialysis on the . He normally does Wednesday dialysis. - Transfer Medications Transfer Medications: Please see the transfer sheet - Allergies Allergies/Adverse Reactions: rosuvastatin [Rosuvastatin] Allergy (Verified 03/06/16 10:07) - Diet/Activity Discharge Diet: Other (Comments) - Nothing by mouth Hospital Course Hospital Course: 66-year-old gentleman who is a dialysis patient who presented with a 2 day history of abdominal pain. Reported it started in the periumbilical area and spread to his lower abdomen. Patient went to dialysis and during dialysis develop some hypotension and was referred to the emergency room. Because of his abdominal pain a CT scan was done and showed him to have free air as well as air in the bowel wall and in the portal system. It was presumed That he had perforated viscus. Patient was started on vancomycin, Zosyn, Flagyl and taken to the operating room by general surgery. Postoperatively patient was moved to intensive care unit and required vasopressors because of hypotension. He was then transferred to the surgery service at [facility] for further care. Physical Exam Vital Signs: Temp Pulse Resp BP Pulse Ox 97.5 F 79 15 101/70 100 11/26/16 23:14 11/26/16 23:14 11/26/16 23:14 11/26/16 23:14 11/26/16 23:14 Intake & Output 11/26/16 11/27/16 11/28/16 06:59 06:59 06:59 Intake Total 1100 Output Total 1100 Balance 0 Eye exam: PRESENT: conjunctiva pink, scleral icterus Mouth exam: PRESENT: moist, tongue midline Neck exam: ABSENT: JVD Respiratory exam: PRESENT: clear to auscultation kyree. ABSENT: rales, rhonchi, wheezes Cardiovascular exam: PRESENT: RRR. ABSENT: diastolic murmur, rubs, systolic murmur GI/Abdominal exam: PRESENT: tenderness - diffuse tenderness prior to surgery Extremities exam: PRESENT: other - bilat bka Neurological exam: PRESENT: alert, awake, oriented to person, oriented to place , oriented to time, oriented to situation, other - Prior to surgery. Postoperatively he was intubated. Skin exam: PRESENT: dry, intact, warm. ABSENT: cyanosis, rash Results Impressions: Chest X-Ray 11/26/16 00:00 IMPRESSION: Interval placement of lines and tubes. Abdomen/Pelvis CT 11/26/16 16:04 IMPRESSION: Multiple dilated loops of bowel with fecalized material. There also appears to be air within the wall these all concerning for pneumatosis. There is also air seen within the biliary system and the portal vein/ superior mesenteric vein. These findings concerning for bowel necrosis which may be secondary to long-term obstruction and/or acute ischemia. There is also multiple lobules of air is seen within the abdomen concerning for free intra- abdominal air. The patient is noted to have extensive vascular calcifications throughout the abdomen the evaluation vascular system with limited without contrast. There also appears to be a point of narrowing seen in the distal ileum which could represent a transition point from obstruction. Plan Discharge Plan: transferred to [facility] via helicopter Time Spent: Less than 30 Minutes
== END 2016-11-26 23:02 | disposition short-term general hospital (02) | DRG 853 ==
LOC: ER 15:01 → EH 18:51 → ICU 21:36
PROVIDERS: ATTEND Surgery
PROC: 0D1L0Z4 Bypass Transverse Colon to Cutaneous, Open Approach (ICD-10-PCS; 2016-11-26)
PROC: 02HV33Z Insertion of Infusion Device into Superior Vena Cava, Percutaneous Approach (ICD-10-PCS; 2016-11-26)
PROC: B548ZZA Ultrasonography of Superior Vena Cava, Guidance (ICD-10-PCS; 2016-11-26)
PROC: 0DTG0ZZ Resection of Left Large Intestine, Open Approach (ICD-10-PCS; principal; 2016-11-26 19:00)
DX: A41.9 Sepsis, unspecified organism (principal); N18.6 End stage renal disease; K57.20 Diverticulitis of large intestine with perforation and abscess without bleeding; I13.2 Hypertensive heart and chronic kidney disease with heart failure and with stage 5 chronic kidney disease, or end stage renal disease; E11.22 Type 2 diabetes mellitus with diabetic chronic kidney disease; E11.65 Type 2 diabetes mellitus with hyperglycemia; I50.9 Heart failure, unspecified; Z99.2 Dependence on renal dialysis; M19.90 Unspecified osteoarthritis, unspecified site; D63.1 Anemia in chronic kidney disease; F32.9 Major depressive disorder, single episode, unspecified; E78.5 Hyperlipidemia, unspecified; E11.51 Type 2 diabetes mellitus with diabetic peripheral angiopathy without gangrene; B19.20 Unspecified viral hepatitis C without hepatic coma; Z66 Do not resuscitate; Z90.49 Acquired absence of other specified parts of digestive tract; Z89.512 Acquired absence of left leg below knee; Z89.511 Acquired absence of right leg below knee; I25.2 Old myocardial infarction; Z87.891 Personal history of nicotine dependence; Z79.4 Long term (current) use of insulin; Z82.49 Family history of ischemic heart disease and other diseases of the circulatory system; Z83.3 Family history of diabetes mellitus; Z80.9 Family history of malignant neoplasm, unspecified
CPT/HCPCS: 36415; 71010; 74176; 790; 80053; 83605; 83690; 85025; 85610; 85730; 86850; 86900; 86901; 87040; 88307; 94002; 96365; 96368; 96375; 99291; C1751; J0330; J1170; J2250; J2370; J2405; J2704; J3010; J3370; J3490; J7120

== ENCOUNTER → 2017-01-14 | Outpatient (CLI) | payer MEDICARE ==
[2017-01-14 19:30] LABS: HEMATOCRIT 34.3 % (37.9-51.0); HEMOGLOBIN 11.1 g/dL (13.5-17.0); MEAN CORPUSCULAR HEMOGLOBIN 30.1 pg (27.0-33.4); MEAN CORPUSCULAR HGB CONC 32.4 g/dL (32.0-36.0); MEAN CORPUSCULAR VOLUME 93 fl (80-97); RED BLOOD COUNT 3.69 10^6/uL (4.35-5.55); RED CELL DISTRIBUTION WIDTH 17.8 % (11.5-14.0); WHITE BLOOD COUNT 4.8 10^3/uL (4.0-10.5)
[2017-01-14 19:52] LABS: BAND NEUTROPHILS % (MANUAL) 3 % (3-5); BASOPHILS % (MANUAL) 0 % (0-2); EOSINOPHILS % (MANUAL) 2 % (0-6); LYMPHOCYTES % (MANUAL) 16 % (13-45); TOTAL CELLS COUNTED 100
[2017-01-14 19:53] LABS: ANISOCYTOSIS 1+; TOXIC GRANULATION SLIGHT
[2017-01-14 19:55] LABS: ALANINE AMINOTRANSFERASE 23 U/L (21-72); ALBUMIN 3.7 g/dL (3.5-5.0); ALKALINE PHOSPHATASE 123 U/L (38-126); ANION GAP 14 (5-19); ASPARTATE AMINO TRANSFERASE 14 U/L (17-59); BILIRUBIN,TOTAL 0.6 mg/dL (0.2-1.3); BLOOD UREA NITROGEN 19 mg/dL (7-20); CALCIUM 8.4 mg/dL (8.4-10.2); CARBON DIOXIDE 27 mmol/L (22-30); CHLORIDE 97 mmol/L (98-107); CREATININE RESULT 2.45 mg/dL (0.52-1.25); GLUCOSE 192 mg/dL (75-110); POTASSIUM 3.6 mmol/L (3.6-5.0); SODIUM 137.8 mmol/L (137-145); TOTAL PROTEIN 6.4 g/dL (6.3-8.2)
== END ==
LOC: OD 16:26
PROVIDERS: ATTEND Physician Assistant Surgical
DX: R10.9 Unspecified abdominal pain (principal); Z98.890 Other specified postprocedural states
CPT/HCPCS: 36415; 80053; 85025

== ENCOUNTER 2018-09-19 07:22 | Day surgery (SDC) | payer MEDICARE, MEDICAID ==
[2018-09-19] MEDS ORDERED: DIAZEPAM 5 MG TABLET ONE (08:04)
[2018-09-19] MEDS ORDERED: OXYCODONE-ACETAMINOPHEN 5-325 MG TABLET ONE (08:04)
[2018-09-19 08:27] LABS: HEMATOCRIT 33.9 % (37.9-51.0); HEMOGLOBIN 11.2 g/dL (13.5-17.0); MEAN CORPUSCULAR HEMOGLOBIN 28.8 pg (27.0-33.4); MEAN CORPUSCULAR VOLUME 88 fl (80-97); PLATELET COUNT 128 10^3/uL (150-450); RED BLOOD COUNT 3.87 10^6/uL (4.35-5.55); RED CELL DISTRIBUTION WIDTH 16.7 % (11.5-14.0); WHITE BLOOD COUNT 4.4 10^3/uL (4.0-10.5)
[2018-09-19 09:00] LABS: ANION GAP 19 (5-19); BLOOD UREA NITROGEN 51 mg/dL (7-20); CALCIUM 8.8 mg/dL (8.4-10.2); CARBON DIOXIDE 21 mmol/L (22-30); CHLORIDE 99 mmol/L (98-107); GLUCOSE 323 mg/dL (75-110); POTASSIUM 5.1 mmol/L (3.6-5.0); SODIUM 138.9 mmol/L (137-145)
[2018-09-19] MEDS ORDERED: LIDOCAINE 0.5% INJ-PF (5 MG/ML) 50 ML SDV ONE (09:20)
[2018-09-19] MEDS ORDERED: FENTANYL CITRATE INJ/PF 100 MCG/2 ML AMPUL ONE (09:22)
[2018-09-19] MEDS ORDERED: MIDAZOLAM 2 MG/2 ML INJ ONE (09:22)
[2018-09-19] MEDS ORDERED: HEPARIN SOD (PORCINE) 5,000 UNIT/ML 1 ML SYRINGE ONE (09:23)
--- NOTE | 2018-09-19 11:27 | Operative Report ---
Operative Report DATE OF SURGERY: 09/19/18 PREOPERATIVE DIAGNOSIS: 1. Malfunctioning AV fistula, left radiocephalic. 2. End-stage renal disease on hemodialysis. 3. Diabetes mellitus type 2. 4. Hypertension. POSTOPERATIVE DIAGNOSIS: 1. Malfunctioning AV fistula, left radiocephalic. 2. End-stage renal disease on hemodialysis. 3. Diabetes mellitus type 2. 4. Hypertension. OPERATION: 1. Needle access in the fistula. 2. Angioplasty. 3. Drug- eluting angioplasty. 4. Angiogram and interpretation. SURGEON: ANN NOGUEIRA POWER DRIVEN BRUSH MAKER: None. ANESTHESIA: Moderate Sedation TISSUE REMOVED OR ALTERED: Not applicable. COMPLICATIONS: None. ESTIMATED BLOOD LOSS: 5 mL. INTRAOPERATIVE FINDINGS: Indication, this is a patient who has a left radiocephalic fistula has been referred because it has been tense and malfunctioning. This is confirmed on examination and, based on this angioplasty is recommended. The risks, benefits, expected outcome and alternatives are understood by the patient. He wishes to proceed. Findings consisted of a well founded left forearm radiocephalic fistula. Enlarged and tense for a distance of about 8 cm above that level relatively soft. Suggesting cephalad stenosis. Angiogram confirms this with an area of stenosis about 0.5 cm long at about 12 cm from the anastomosis. Estimated to be 80% of the adjacent lumen. Completely corrected by angioplasty with a 7 mm balloon. A. Drug-eluting balloon employed secondarily. PROCEDURE: PROCEDURE: After verifying the procedure and having obtained informed consent, the patient's left arm was prepared with Chlorhexidine and draped out with sterile linen. Local anesthesia infiltrated. Percutaneous access into the fistula ,[ antegrade], obtained about [2 cm] from the arteriovenous anastomosis using a micro puncture needle followed by micro puncture wire and then a micro puncture catheter. A 0.035 Bena wire was inserted, and over this, a 6 Vietnamese short introducer was placed. Angiogram demonstrated the aforementioned findings. Angioplasty was elected. This was followed by a [7-mm] angioplasty balloon . Angioplasty was serially done f at the culprit lesion inflating using a 3 mils syringe for 2 minutes. A 7 mm drug-eluting balloon was not inflated at the culprit region inflating up to 12 atmospheres for 4 minutes.]. Completion angiogram demonstrated [satisfactory result]. The instrumentation was now withdrawn over hand pressure for 10 minutes . Dressings applied, procedure concluded. Exposure time: 0.2 minutes. Radiation: 14.37 mGy. Contrast: 25 mils of Isovue-300, low osmolality. DICTATING PHYSICIAN: ANN TAVAREZ M.D. cc: ANN TAVAREZ M.D. ([id number]) >>
--- NOTE | 2018-09-19 11:29 | Discharge Summary ---
Discharge Summary (SDC) - Discharge Final Diagnosis: #1 malfunctioning AV fistula, left radiocephalic. 2. End-stage renal disease on hemodialysis. 3. Diabetes mellitus type 2. 4. Hypertension. Date of Surgery: 09/19/18 Discharge Date: 09/19/18 Condition: Fair Forms: Sedation D/C Instructions, Discharge POC-Surgical Service Treatment or Instructions: Return to physician as directed. Discharge home [after recovery per ASU criteria]. Diet , [renal],as tolerated, when fully awake advance as tolerated. Activities within moderation encouraged. Follow up in my office by appointment in about [1 month. Call for appointment. Leave wounds [covered], [keep clean and dry, until hemodialysis]. Meds per med rec. May shower [in 48 hrs], [try to keep operated area as dry as possible]. Referrals: ANN TAVAREZ MD [ACTIVE STAFF] - 10/05/18 3:15 pm Discharge Diet: Other (Comments) - Renal. Diabetic. Respiratory Treatments at Home: Deep Breathing/Coughing Discharge Activity: Activity As Tolerated Home Care Assistance: None Needed Report the Following to Your Physician Immediately: Shortness of Breath, Nausea , Vomiting, Increase in Pain, Fever over 101 Degrees, Unusual Bleeding, Redness , Swelling, Warmth, Numbness, Tingling Sensation
--- NOTE | 2018-09-19 11:33 | PDOC H&P ---
General Chief Complaint: The patient was admitted for malfunctioning AV fistula in the left arm. - Diagnosis (1) Dialysis AV fistula malfunction Is this a Current Diagnosis?: Yes (2) Diabetes type 2, uncontrolled Is this a Current Diagnosis?: Yes (3) ESRD (end stage renal disease) on dialysis Is this a Current Diagnosis?: Yes (4) Hypertension Is this a Current Diagnosis?: Yes - Current Medications/Allergies Home Medications: B Complex W-C No.20/Folic Acid [Renal Caps Softgel] 1 tab PO PRN 09/19/18 Calcium Acetate [Phoslo 667 mg Capsule] 1 tab PO DAILY 09/19/18 Carvedilol 25 mg PO DAILY 09/19/18 Clonidine HCl [Clonidine HCl ER] 0.1 mg PO Q12 09/19/18 Isosorbide Mononitrate [Imdur 30 mg Tablet.er] 30 mg PO DAILY 09/19/18 Allergies/Adverse Reactions: rosuvastatin [Rosuvastatin] Allergy (Verified 03/06/16 10:07) Past Medical History Cardiac Medical History: Reports: Congestive Heart Failure - Chronic CHF with EF of 30%, Coronary Artery Disease, Myocardial Infarction - CHF, "POSSIBLE HEART ATTACK", Hyperlipidema, Hypertension, Peripheral Vascular Disease Pulmonary Medical History: Denies: Asthma, Bronchitis, Chronic Obstructive Pulmonary Disease (COPD), Pneumonia, Tuberculosis Neurological Medical History: Denies: Seizures Endocrine Medical History: Reports: Diabetes Mellitus Type 2 Renal/ Medical History: Reports: End Stage Renal Disease GI Medical History: Reports: Hepatitis - Hepatitis C Musculoskeltal Medical History: Denies: Arthritis Psychiatric Medical History: Reports: Depression Hematology: Denies: Anemia Past Surgical History Past Surgical History: Reports: Cholecystectomy, Orthopedic Surgery - Bilateral BKA, Vascular Surgery - Left arm AV fistula, Other - Previous peritoneal dialysis catheter. Denies: Pacemaker Family History Family History: DM, Malignancy Parental Family History Reviewed: No Children Family History Reviewed: No Sibling(s) Family History Reviewed.: No Social History Smoking Status: Never Smoker Frequency of Alcohol Use: None Hx Recreational Drug Use: No Drugs: None Hx Prescription Drug Abuse: No Physical Exam Vital Signs: Temp Pulse Resp BP Pulse Ox 97.1 F 81 16 153/96 H 98 09/19/18 08:24 09/19/18 08:24 09/19/18 08:24 09/19/18 08:24 09/19/18 08:24 Intake & Output 09/18/18 09/19/18 09/20/18 06:59 06:59 06:59 Weight 72 kg Additional comments: Constitutional: Well-developed well-nourished gentleman. No apparent acute distress. Eyes: Mucous membranes pink and moist, pupils equal and reactive to light. Conjunctiva normal. Cornea normal. ENT: Hearing grossly normal. External pinna normal to inspection. Missing teeth. Tongue normal to inspection. Cardiac: Heart sounds normal. Respiratory breath sounds are present bilaterally, normal. Normal respiratory effort. Psychiatric: Judgment, memory, insight seem normal. Mood is pleasant and appropriate. Extremities: Upper extremities show normal range of movement, some muscle wasting. Pulses present noted to the radial arteries, difficult to feel due to atherosclerosis. Capillary refill normal. No cyanosis noted. No muscle wasting noted. Left forearm radiocephalic fistula, high forearm. Forearm and distended suggesting cephalad stenosis. Lower extremities show old major amputations. Impression/Plan Plan: This patient who has a malfunctioning AV fistula submitted for angiogram and possible angioplasty. The risks, benefits, expected outcome and alternatives are familiar to him and his . They wish to proceed.
--- NOTE | 2018-09-19 12:10 | RADIOLOGY REPORT (SQ) ---
EXAM DESCRIPTION: FISTULAGRAM W/PLASTY COMPLETED DATE/TIME: 09/19/2018 10:48 am REASON FOR STUDY: 858.82A T82.858A STENOSIS OF OTHER VASCULAR PROSTH DEV/GRFT, INIT COMPARISON: 11/23/2016 FLUOROSCOPY TIME: 0.2 minutes 91 digital images saved to PACS. TECHNIQUE: Intra-operative images acquired during surgical procedure to evaluate progress. NUMBER OF IMAGES: 91 digital images LIMITATIONS: None. FINDINGS: Intra procedural imaging and fluoro during evaluation and plasty of left upper extremity d ialysis access by Dr. Hutchison. Please see the operative report for further details IMPRESSION: Intra procedural imaging and fluoro COMMENT: Quality ID [id number]: Final reports for procedures using fluoroscopy that document radiation exp osure indices, or exposure time and number of fluorographic images (if radiation exposure indices are not available) Please consult full operative report of the attending physician for description of the procedure. TECHNICAL DOCUMENTATION: JOB ID: [id number] [email or web address]- All Rights Reserved Reading location - IP/workstation name: [email or web address]
[2018-09-19 12:42] VITALS: BP 152/95
== END 2018-09-19 11:45 | disposition home or self-care (01) ==
LOC: CCL 07:22
PROVIDERS: ATTEND Surgery
DX: T82.858A Stenosis of other vascular prosthetic devices, implants and grafts, initial encounter (principal); Y83.2 Surgical operation with anastomosis, bypass or graft as the cause of abnormal reaction of the patient, or of later complication, without mention of misadventure at the time of the procedure; I32 Pericarditis in diseases classified elsewhere; I50.9 Heart failure, unspecified; N18.6 End stage renal disease; E11.22 Type 2 diabetes mellitus with diabetic chronic kidney disease; Z99.2 Dependence on renal dialysis; I25.10 Atherosclerotic heart disease of native coronary artery without angina pectoris; E78.5 Hyperlipidemia, unspecified; I73.9 Peripheral vascular disease, unspecified; B19.20 Unspecified viral hepatitis C without hepatic coma; Z79.899 Other long term (current) drug therapy; Z88.8 Allergy status to other drugs, medicaments and biological substances
CPT/HCPCS: 36415; 85027; 80048; 36902; C2623 ×2; C1752; C1725; Q9967; C1769; J2250; J1644 ×2; A9270 ×2; J3010; J3490

== ENCOUNTER 2018-10-13 12:13 | Emergency (ER) | payer MEDICARE, MEDICAID ==
[2018-10-13 12:54] LABS: ABSOLUTE BASOPHILS # (AUTO) 0.1 10^3/uL (0.0-0.2); ABSOLUTE EOSINOPHILS # (AUTO) 0.1 10^3/uL (0.0-0.6); ABSOLUTE LYMPHOCYTES (AUTO) 0.6 10^3/uL (0.5-4.7); ABSOLUTE MONOCYTES (AUTO) 0.5 10^3/uL (0.1-1.4); ABSOLUTE NEUT (AUTO) 4.2 10^3/uL (1.7-8.2); BASOPHILS % (AUTO) 1.3 % (0-2); EOSINOPHILS % (AUTO) 1.8 % (0-6); HEMATOCRIT 32.5 % (37.9-51.0); HEMOGLOBIN 10.5 g/dL (13.5-17.0); LYMPHOCYTES % (AUTO) 11.3 % (13-45); MEAN CORPUSCULAR HEMOGLOBIN 28.6 pg (27.0-33.4); MEAN CORPUSCULAR HGB CONC 32.1 g/dL (32.0-36.0); MEAN CORPUSCULAR VOLUME 89 fl (80-97); MONOCYTES % (AUTO) 9.1 % (3-13); PLATELET COUNT 113 10^3/uL (150-450); RED BLOOD COUNT 3.65 10^6/uL (4.35-5.55); RED CELL DISTRIBUTION WIDTH 16.4 % (11.5-14.0); SEGMENTED NEUTROPHILS % (AUTO) 76.5 % (42-78); TOTAL CELLS COUNTED % (AUTO) 100 %; WHITE BLOOD COUNT 5.4 10^3/uL (4.0-10.5)
[2018-10-13 13:02] LABS: INTERNATIONAL RATION (INR) 1.18; PROTHROMBIN TIME 15.6 SEC (11.4-15.4)
[2018-10-13 13:15] LABS: ALANINE AMINOTRANSFERASE 9 U/L (21-72); ALKALINE PHOSPHATASE 110 U/L (38-126); ASPARTATE AMINO TRANSFERASE 13 U/L (17-59); BILIRUBIN,DIRECT 0.4 mg/dL (0.0-0.4); BILIRUBIN,TOTAL 0.5 mg/dL (0.2-1.3); BLOOD UREA NITROGEN 98 mg/dL (7-20); CALCIUM 8.9 mg/dL (8.4-10.2); CREATINE KINASE 52 U/L (55-170); GLUCOSE 269 mg/dL (75-110); TOTAL PROTEIN 6.7 g/dL (6.3-8.2)
[2018-10-13 13:21] LABS: CARBON DIOXIDE 17 mmol/L (22-30); CHLORIDE 105 mmol/L (98-107); SODIUM 141.9 mmol/L (137-145)
[2018-10-13 13:22] LABS: ANION GAP 20 (5-19)
[2018-10-13 13:27] LABS: POTASSIUM 6.9 mmol/L (3.6-5.0)
[2018-10-13 13:28] LABS: CREATINE KINASE MB 3.31 ng/mL (<4.55)
[2018-10-13 13:35] LABS: TROPONIN I 0.068 ng/mL
[2018-10-13] MEDS ORDERED: DEXTROSE 50%-WATER 25 GM/50 ML DISP.SYRIN IV ONE (13:57)
[2018-10-13] MEDS ORDERED: INSULIN REG, HUMAN 100 UNIT/ML 3 ML VIAL (PYX) IV ONE (13:57)
[2018-10-13] MEDS ORDERED: SODIUM BICARBONATE 4.2% INJ (2.5 MEQ/5 ML) VIAL INJ ONE (14:27)
[2018-10-13] MEDS ORDERED: CALCIUM GLUCONATE 1000 MG/10 ML INJ IV ONE (14:28)
--- NOTE | 2018-10-13 14:30 | ER Document Report ---
ED General - General Chief Complaint: Diarrhea Stated Complaint: DIARRHEA Time Seen by Provider: 10/13/18 13:11 Notes: Patient has pain and his stoma for his colostomy. He is been having some diarrhea over the last 2-3 days and that seems to have irritated the surface of the stoma. She has the colostomy due to a bowel infection and something ruptured about a year and a half ago. Has seen a very small amount of what might be some blood coming from the surface of the stoma where it is very irritated. Noticed this irritation yesterday. Patient thinks he might be dehydrated. 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 He is having to wear a diaper over the area of the stoma which is contributing to the irritation of that area. Denies any fevers. No nausea or vomiting. Patient is a dialysis patient on Wednesday, , and Wednesday dialysis. He missed his dialysis today and on Wednesday, so his last dialysis was last Wednesday. TRAVEL OUTSIDE OF THE [place] IN LAST 30 DAYS: No - Related Data Allergies/Adverse Reactions: rosuvastatin [Rosuvastatin] Allergy (Verified 03/06/16 10:07) Past Medical History - Social History Smoking Status: Unknown if Ever Smoked Family History: Reviewed & Not Pertinent, DM, Malignancy Patient has suicidal ideation: No Patient has homicidal ideation: No - Past Medical History Cardiac Medical History: Reports: Hx Congestive Heart Failure - Chronic CHF with EF of 30%, Hx Coronary Artery Disease, Hx Heart Attack - CHF, "POSSIBLE HEART ATTACK", Hx Hypercholesterolemia, Hx Hypertension, Hx Peripheral Vascular Disease Endocrine Medical History: Reports: Hx Diabetes Mellitus Type 2 Renal/ Medical History: Reports: Hx End Stage Renal Disease, Hx Hemodialysis - Wednesday GI Medical History: Reports: Hx Hepatitis - Hepatitis C Psychiatric Medical History: Reports: Hx Depression Infectious Medical History: Reports: Hx Hepatitis - Hepatitis C Past Surgical History: Reports: Hx Cholecystectomy, Hx Orthopedic Surgery - Bilateral BKA, Hx Vascular Surgery - Left arm AV fistula, Other - Previous peritoneal dialysis catheter. - Immunizations Hx Diphtheria, Pertussis, Tetanus Vaccination: Yes Hx Pneumococcal Vaccination: 01/18/15 Review of Systems - Review of Systems Notes: REVIEW OF SYSTEMS: CONSTITUTIONAL : Denies fever. EENT: Denies eye, ear, nose or mouth or throat pain or other symptoms. CARDIOVASCULAR: Denies chest pain. RESPIRATORY: Denies cough, chest congestion, or shortness of breath. GASTROINTESTINAL: Denies abdominal pain or nausea, vomiting, but has had diarrhea as mentioned in HPI.. GENITOURINARY: Only makes a very small amount of urine. MUSCULOSKELETAL: Denies back or neck pain. Denies joint pain or swelling. SKIN: Denies rash or skin lesions. NEUROLOGICAL: Denies LOC or altered mental status. Denies headache. Denies sensory loss or motor deficits. ALL OTHER SYSTEMS REVIEWED AND NEGATIVE. Physical Exam - Vital signs Vitals: Temp Pulse Resp BP Pulse Ox 97.6 F 97 16 186/113 H 96 10/13/18 12:13 10/13/18 12:13 10/13/18 12:13 10/13/18 12:13 10/13/18 12:13 Interpretation: Hypertensive Notes: PHYSICAL EXAMINATION: GENERAL: Well-appearing, in no acute distress. HEAD: Atraumatic, normocephalic. EYES: Pupils equal round and reactive to light, extraocular movements intact. ENT: oropharynx clear without exudates. Moist mucous membranes. NECK: Normal range of motion, supple. LUNGS: Breath sounds clear and equal bilaterally. HEART: Regular rate and rhythm without murmurs. ABDOMEN: Soft, nontender. No guarding or rebound. No masses. Colostomy in the left lower quadrant. Stoma in the bag is bright red in color. No ken bleeding seen, however. BACK: No tenderness throughout entire back. EXTREMITIES: Normal range of motion without pain. NEUROLOGICAL: Normal speech, normal gait. Normal sensory, motor, and reflex exams. Awake, alert, and oriented x3. Cranial nerves normal. PSYCH: Normal mood, normal affect. SKIN: Warm, dry, no rashes. Course - Re-evaluation Re-evalutation: 10/13/18 14:[address] Arzate who will arrange for emergency dialysis. Patient is being given glucose and insulin, calcium gluconate, and bicarb. 10/13/18 19:45 Am told by the patient's that the colostomy bags did arrive by mail today and she has them. Patient is going to receive a total of 3 hours of dialysis this evening and that will take care of him until his next scheduled dialysis on Wednesday. - Vital Signs Vital signs: Temp Pulse Resp BP Pulse Ox 98.1 F 87 19 149/93 H 98 10/13/18 15:02 10/13/18 15:02 10/13/18 15:32 10/13/18 15:32 10/13/18 15:32 - Laboratory Result Diagrams: 10/13/18 12:25 10/13/18 12:25 Laboratory results interpreted by me: 10/13/18 10/13/18 10/13/18 12:25 12:25 12:25 RBC 3.65 L Hgb 10.5 L Hct 32.5 L RDW 16.4 H Plt Count 113 L Lymphocytes % 11.3 L PT 15.6 H Potassium 6.9 H* Carbon Dioxide 17 L Anion Gap 20 H BUN 98 H Creatinine 10.22 H Est GFR ( Amer) 6 L Est GFR (Non-Af Amer) 5 L Glucose 269 H AST 13 L ALT 9 L Creatine Kinase 52 L Critical Care Note - Critical Care Note Total time excluding time spent on procedures (mins): 45 Discharge - Discharge Clinical Impression: Hyperkalemia, Bleeding from colostomy stoma, ESRD (end stage renal disease) on dialysis Condition: Stable Additional Instructions: DIARRHEA, NON-SPECIFIC: Diarrhea means frequent, watery stools. There are many causes. Any problem that keeps the intestinal tract from absorbing water from the stool can lead to diarrhea. A sudden new diarrhea problem is usually caused by a virus, food sensitivity, toxic bacteria, or drugs. In this case, we expect the problem to go away soon. Testing is done only if you seem seriously ill from the diarrhea. If you have chronic diarrhea, or diarrhea that keeps coming back, we need to find out why. Chronic diarrhea can be due to inflammation of the bowels such as Crohn's disease or ulcerative colitis, food sensitivity such as intolerance to lactose or wheat protein, irritable bowel syndrome, and other problems. If your diarrhea is a significant problem but it's not clear why you have it, we' ll refer you to a specialist for further testing. During an episode of diarrhea, drink small amounts (two to six ounces) of clear liquids (soft drinks, sport drinks, herb teas, broth, etc). Take fluids frequently to prevent dehydration. It's usually not a problem to take mild anti- diarrhea medication such as Kaopectate or Pepto-Bismol. As the diarrhea eases, advance to small amounts of bland food (mashed potato, toast) for 24 hours. Call the physician if blood appears in your vomit or stool, if vomiting lasts longer than 24 hours, if the abdominal pain worsens or becomes localized to one area, if you develop high fever, or if you become lightheaded and weak. Your stoma swelling and redness will subside as her diarrhea goes away. Fortunately you now have your bags to use with the colostomy. Because you did not go to dialysis on Wednesday and today, your potassium and creatinine and BUN weighted. You have undergone emergency dialysis that should last you until your next appointment Wednesday. Keep that appointment to get dialyzed on Wednesday. FOLLOW-UP CARE: If you have been referred to a physician for follow-up care, call the physician s office for an appointment as you were instructed or within the next two days. If you experience worsening or a significant change in your symptoms, notify the physician immediately or return to the Emergency Department at any time for re-evaluation.
[2018-10-13] MEDS ORDERED: SODIUM BICARBONATE 8.4% INJ 50 MEQ/50 ML DISP.SYRIN ONE (14:36)
[2018-10-13] MEDS ORDERED: SODIUM BICARBONATE 8.4% INJ 50 MEQ/50 ML DISP.SYRIN IV ONE (14:41)
[2018-10-13 15:42] VITALS: BP 149/93
--- NOTE | 2018-10-13 20:39 | PDOC CONSULTATION ---
Consultation Consult Date: 10/13/18 Attending physician:: TAYLOR CHILDS Consult reason:: I was asked to see the patient due to hyperkalemia and the patient with ESRD and has missed his hemodialysis treatment. 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 Duke Osei, diabetes mellitus, and hypertension who presented to the emergency room because of irritation of his ostomy and diarrhea. For the last few days patient has been having loose stools from his ostomy with a lot of gas. There ran out of his colostomy bag and so he has not been able to go to [facility] for his usual dialysis treatment. His last dialysis treatment was last Wednesday. He said he is not eating much and just feels sick. called Dr. Hutchison about this and they were recommended to go to the emergency room. Fortunately they received the shipment of his colostomy bags now. Because of irritation around the ostomy and persistent diarrhea and watery stools he was brought into the emergency room by his . Work-up also reveals today that his potassium was 6.9 after missing his dialysis treatment on Wednesday and today. Dr. Childs called me for emergency dialysis on the patient in the emergency room. I saw the patient during dialysis this evening. He said he is feeling much better now and is tolerating dialysis without any problems. He said his loose stools stop while he was in the emergency room. Past Medical History Cardiac Medical History: Reports: CHF-Systolic, Coronary Artery Disease, Hyperlipidemia, Hypertension-primary, Myocardial Infarction - CHF, "POSSIBLE HEART ATTACK", Peripheral Vascular Disease Endocrine Medical History: Reports: Diabetes Mellitus Type 2 Complications of Diabetes: Reports: Autonomic Neuropathy, Nephropathy, Retinopathy Renal/ Medical History: Reports: End Stage Renal Disease, Renal Osteodystropy GI Medical History: Reports: Hepatitis - Hepatitis C Psychiatric Medical History: Reports: Depression, General Anxiety Disorder Hematology Medical History: Reports Anemia of Chronic Kidney Disease Past Surgical History Past Surgical History: Reports: Cholecystectomy, Dialysis Access Surgery AVF, Orthopedic Surgery - Bilateral BKA, Other - Previous peritoneal dialysis catheter. Social History Information Source: Patient, Relative Smoking Status: Unknown if Ever Smoked Frequency of Alcohol Use: None Hx Recreational Drug Use: No Drugs: None Hx Prescription Drug Abuse: No Family History Family History: DM, Hypertension Parental Family History Reviewed: Yes Children Family History Reviewed: Yes Sibling(s) Family History Reviewed.: Yes Medication/Allergy Home Medications: B Complex W-C No.20/Folic Acid [Renal Caps Softgel] 1 tab PO PRN 09/19/18 Calcium Acetate [Phoslo 667 mg Capsule] 1 tab PO DAILY 09/19/18 Carvedilol 25 mg PO DAILY 09/19/18 Clonidine HCl [Clonidine HCl ER] 0.1 mg PO Q12 09/19/18 Isosorbide Mononitrate [Imdur 30 mg Tablet.er] 30 mg PO DAILY 09/19/18 Allergies/Adverse Reactions: rosuvastatin [Rosuvastatin] Allergy (Verified 03/06/16 10:07) Review of Systems All systems: reviewed and no additional remarkable complaints except as stated Review of Systems: Constitutional: ABSENT: chills, fatigue, fever(s), headache(s), weight gain, weight loss Eyes: ABSENT: visual disturbances Ears: ABSENT: hearing changes Cardiovascular: ABSENT: chest pain, dyspnea on exertion, edema, orthropnea, palpitations Respiratory: ABSENT: cough, dyspnea, hemoptysis Gastrointestinal: ABSENT: abdominal pain, constipation, hematemesis, hematochezia, nausea, vomiting; admits diarrhea Genitourinary: ABSENT: dysuria, hematuria Musculoskeletal: ABSENT: joint swelling Integumentary: ABSENT: rash, wounds Neurological: ABSENT: abnormal gait, abnormal speech, confusion, dizziness, focal weakness, numbness, syncope Psychiatric: ABSENT: anxiety, depression Endocrine: ABSENT: cold intolerance, heat intolerance, polydipsia, polyuria Hematologic/Lymphatic: ABSENT: easy bleeding, easy bruising, lymphadenopathy Physical Exam Vital Signs: Temp Pulse Resp BP Pulse Ox 98.1 F 87 19 149/93 H 98 10/13/18 15:02 10/13/18 15:02 10/13/18 15:32 10/13/18 15:32 10/13/18 15:32 Intake & Output 10/12/18 10/13/18 10/14/18 06:59 06:59 06:59 Weight 72.575 kg Vitals during dialysis: Blood pressure 149/95, heart rate of 90, oxygen saturation 98%, respiratory rate of 16, blood flow rate of 350 mL/min, dialysate flow rate of 800 mL/min. Exam: General appearance: No acute distress, cooperative, well-developed, well- nourished Head exam: PRESENT: atraumatic, normocephalic Eye exam: PRESENT: Conjunctiva pale, EOMI, PERRLA. ABSENT: conjunctival injection, scleral icterus Mouth exam: PRESENT: moist, neck supple, tongue midline Neck exam: PRESENT: full ROM. ABSENT: carotid bruit, JVD, lymphadenopathy, thyromegaly Respiratory exam: PRESENT: Diminished to auscultation bilaterally. ABSENT: rales, rhonchi, stridor, wheezes Cardiovascular exam: PRESENT: RRR, +S1, +S2. ABSENT: systolic murmur Pulses: PRESENT: normal radial pulses, normal dorsalis pedis pulses GI/Abdominal exam: PRESENT: normal bowel sounds, soft. Colostomy bag on his left lower quadrant with some skin irritation around ostomy but no drainage or open sores. ABSENT: guarding, mass, tenderness Rectal exam: Deferred Extremities exam: PRESENT: full ROM. Bilateral BKA stump ABSENT: calf tenderness, pedal edema Musculoskeletal: PRESENT: full ROM. ABSENT: deformity Neurological exam: PRESENT: alert, Awake, Oriented to person, Oriented to place , Oriented to time, reflexes normal, CN II-XII grossly intact. ABSENT: motor sensory deficit Psychiatric exam: PRESENT: appropriate affect, normal mood. ABSENT: homicidal ideation, suicidal ideation Skin exam: PRESENT: intact, dry, warm. ABSENT: rash Results Laboratory Results: 10/13/18 12:25 10/13/18 12:25 10/13/18 10/13/18 12:25 12:25 WBC 5.4 RBC 3.65 L Hgb 10.5 L Hct 32.5 L MCV 89 MCH 28.6 MCHC 32.1 RDW 16.4 H Plt Count 113 L Seg Neutrophils % 76.5 Lymphocytes % 11.3 L Monocytes % 9.1 Eosinophils % 1.8 Basophils % 1.3 Absolute Neutrophils 4.2 Absolute Lymphocytes 0.6 Absolute Monocytes 0.5 Absolute Eosinophils 0.1 Absolute Basophils 0.1 Sodium 141.9 Potassium 6.9 H* Chloride 105 Carbon Dioxide 17 L Anion Gap 20 H BUN 98 H Creatinine 10.22 H Est GFR ( Amer) 6 L Est GFR (Non-Af Amer) 5 L Glucose 269 H Calcium 8.9 Total Bilirubin 0.5 AST 13 L ALT 9 L Alkaline Phosphatase 110 Total Protein 6.7 Albumin 4.0 10/13/18 10/13/18 12:25 12:25 Creatine Kinase 52 L CK-MB (CK-2) 3.31 Troponin I 0.068 Assessment & Plan - Diagnosis (1) ESRD (end stage renal disease) on dialysis Is this a current diagnosis for this admission?: Yes Plan: We will do dialysis today for 3 hours, using the patient's AV fistula, with 1K bath for 1-1/2 hours and then 2K bath for another 1-1/2 hours, blood flow rate of 350 mL per minute, dialysate flow rate of 800 mL per minute, ultrafiltration 2 L as tolerated, no heparin and no Procrit. Patient will be monitored throughout dialysis treatment and adjust treatment accordingly. Patient will be discharged home after dialysis treatment and I advised him to come to his regular dialysis treatment on Wednesday. (2) Hyperkalemia Is this a current diagnosis for this admission?: Yes Plan: Emergency dialysis treatment was done in the emergency room today to treat this. Prior to that he was also given an amp of calcium gluconate, 1 amp sodium bicarbonate, and a combination of regular insulin and D50/ 50. (3) Diarrhea Is this a current diagnosis for this admission?: Yes Plan: Somehow it seems to have improved while patient is in the emergency room. I advised the patient and his to take some Imodium 2 mg every 6 hours as needed if he is having some loose stools. (4) Skin irritation Is this a current diagnosis for this admission?: Yes Plan: Due to loose stools around the ostomy. (5) Anemia in chronic kidney disease Is this a current diagnosis for this admission?: Yes Plan: No Procrit needed at this time. (6) Diabetes mellitus type 2 with complications Is this a current diagnosis for this admission?: Yes (7) Hypertension Is this a current diagnosis for this admission?: Yes - Notes Notes: Thank you very much for this consultation. Patient advised to come to his regular dialysis treatment on Wednesday upon discharge tonight. - Time Time Spent: 50 to 70 Minutes
[2018-10-13] MEDS ORDERED: NORMAL SALINE 1000 ML 1,000 ML IV PRN (21:24)
--- NOTE | 2018-10-13 22:38 | EKG REPORT ---
SEVERITY:- ABNORMAL ECG - SINUS RHYTHM NON SPECIFIC IVCD : Confirmed by: Sudarshan Chatman 13-Oct-2018 22:36:56
== END 2018-10-13 22:01 | disposition home or self-care (01) ==
LOC: ER 12:13
DX: Z93.3 Colostomy status (principal); E87.5 Hyperkalemia; K94.01 Colostomy hemorrhage; Y83.2 Surgical operation with anastomosis, bypass or graft as the cause of abnormal reaction of the patient, or of later complication, without mention of misadventure at the time of the procedure; R19.7 Diarrhea, unspecified; I13.2 Hypertensive heart and chronic kidney disease with heart failure and with stage 5 chronic kidney disease, or end stage renal disease; E11.22 Type 2 diabetes mellitus with diabetic chronic kidney disease; N18.6 End stage renal disease; I50.9 Heart failure, unspecified; I25.10 Atherosclerotic heart disease of native coronary artery without angina pectoris; Z99.2 Dependence on renal dialysis; E78.00 Pure hypercholesterolemia, unspecified; Z86.19 Personal history of other infectious and parasitic diseases; Z90.49 Acquired absence of other specified parts of digestive tract; Z89.512 Acquired absence of left leg below knee; Z89.511 Acquired absence of right leg below knee
CPT/HCPCS: 93005; 99291; 96374; 96375; 36415; 82553; 82550; 85025; 85610; 80053; 84484; 93010; G0257; J0610; J3490 ×2; A9270; J1815

== ENCOUNTER 2019-06-05 06:36 | Day surgery (SDC) | payer MEDICARE, MEDICAID ==
[~2019-06-05 06:36] MED LIST changes: +DIAZEPAM 5 MG TABLET ONE; -LIDOCAINE 2% INJ-PF (20 MG/ML) 10 ML AMPUL ONE; +OXYCODONE-ACETAMINOPHEN 5-325 MG TABLET ONE; -PHENYLEPHRINE HCL INJ/PF 10 MG/1 ML SDV ONE; -SUCCINYLCHOLINE CHLORIDE INJ 200 MG/10 ML VIAL ONE
[2019-06-05 07:46] LABS: HEMATOCRIT 29.6 % (37.9-51.0); HEMOGLOBIN 9.6 g/dL (13.5-17.0); MEAN CORPUSCULAR HEMOGLOBIN 27.5 pg (27.0-33.4); MEAN CORPUSCULAR HGB CONC 32.3 g/dL (32.0-36.0); MEAN CORPUSCULAR VOLUME 85 fl (80-97); RED BLOOD COUNT 3.48 10^6/uL (4.35-5.55); RED CELL DISTRIBUTION WIDTH 17.7 % (11.5-14.0); WHITE BLOOD COUNT 3.9 10^3/uL (4.0-10.5)
[2019-06-05 07:49] LABS: ANION GAP 12 (5-19); BLOOD UREA NITROGEN 69 mg/dL (7-20); CALCIUM 8.7 mg/dL (8.4-10.2); CARBON DIOXIDE 24 mmol/L (22-30); CHLORIDE 101 mmol/L (98-107); POTASSIUM 4.7 mmol/L (3.6-5.0)
[2019-06-05] MEDS ORDERED: HEPARIN SOD (PORCINE) 5,000 UNIT/ML 1 ML VIAL ONE (07:49)
[2019-06-05] MEDS ORDERED: BACITRACIN INJ 50,000 UNIT VIAL ONE (07:49)
[2019-06-05] MEDS ORDERED: MIDAZOLAM 2 MG/2 ML INJ ONE (07:49)
[2019-06-05] MEDS ORDERED: FENTANYL CITRATE INJ/PF 100 MCG/2 ML AMPUL ONE (07:49)
[2019-06-05] MEDS ORDERED: LIDOCAINE 0.5% INJ-PF (5 MG/ML) 50 ML SDV ONE (07:59)
[2019-06-05] MEDS ORDERED: HEPARIN SODIUM,PORCINE/NS/PF 0 UNIT/0 ML RTUINJ IV ONE (08:00)
[2019-06-05 08:01] LABS: GLUCOSE 428 mg/dL (75-110)
[2019-06-05] MEDS ORDERED: INSULIN REG, HUMAN 100 UNIT/ML 3 ML VIAL (PYX) ONE (08:14)
[2019-06-05 08:24] LABS: PLATELET COUNT 90 10^3/uL (150-450)
[2019-06-05 08:26] LABS: ABSOLUTE LYMPHOCYTES# (MANUAL) 0.5 10^3/uL (0.5-4.7); ABSOLUTE MONOCYTES # (MANUAL) 0.2 10^3/uL (0.1-1.4); BASOPHILS % (MANUAL) 0 % (0-2); EOSINOPHILS % (MANUAL) 5 % (0-6); LYMPHOCYTES % (MANUAL) 13 % (13-45); METAMYELOCYTES % (MANUAL) 1 % (0); MONOCYTES % (MANUAL) 6 % (3-13); SEGMENTED NEUTROPHILS % (MAN) 75 % (42-78); TOTAL CELLS COUNTED 100
[2019-06-05 08:28] LABS: ANISOCYTOSIS 1+; OVALOCYTES 1+; PLATELET COMMENT DECREASED; POIKILOCYTOSIS 1+
--- NOTE | 2019-06-05 09:44 | Discharge Summary ---
Discharge Summary (SDC) - Discharge Final Diagnosis: #1 malfunctioning AV fistula left radiocephalic. 2. End-stage renal disease on hemodialysis. 3. Diabetes mellitus type 2. 4. Hypertension. Date of Surgery: 06/05/19 Discharge Date: 06/05/19 Condition: Fair Treatment or Instructions: Discharge home [after recovery per ASU criteria]. Diet , [renal],as tolerated, when fully awake advance as tolerated. Activities within moderation encouraged. Follow up in my office by appointment in about [1 month. Call for appointment. Leave wounds [covered], [keep clean and dry, until hemodialysis. Meds per med rec. May shower [in 48 hrs], [try to keep operated area as dry as possible]. Referrals: SHIRLEY CONNOLLY MD [Primary Care Provider] - Discharge Diet: Other (Comments) - Renal, diabetic. Respiratory Treatments at Home: Deep Breathing/Coughing Discharge Activity: Activity As Tolerated Report the Following to Your Physician Immediately: Shortness of Breath, Unusual Bleeding
--- NOTE | 2019-06-05 09:49 | Operative Report ---
Operative Report DATE OF SURGERY: 06/05/19 PREOPERATIVE DIAGNOSIS: #1 malfunctioning AV fistula left radiocephalic. 2. E nd-stage renal disease on hemodialysis. 3. Diabetes mellitus type 2. 4. Hypertension. POSTOPERATIVE DIAGNOSIS: #1 malfunctioning AV fistula left radiocephalic. 2. End-stage renal disease on hemodialysis. 3. Diabetes mellitus type 2. 4. Hypertension. OPERATION: 1. Ultrasound evaluation of left forearm AV fistula. 2. Fistula angioplasty. 3. Angiogram and interpretation. SURGEON: ANN NOGUEIRA CRANK HAND: None. ANESTHESIA: Moderate Sedation TISSUE REMOVED OR ALTERED: Not applicable. COMPLICATIONS: None. ESTIMATED BLOOD LOSS: 2 mL. INTRAOPERATIVE FINDINGS: Of a well founded left forearm radiocephalic fistula, high. There is retrograde flow in the well-developed portion of the distal fistula for about 5 cm. Distal to that very little development. Proximally there is excellent development up to the bifurcation of the basilic and cephalic. There is a stenosis in the cephalic just application. This is about a 70% stenosis. It was addressed and eradicated with a 7 mm angioplasty balloon. Physical examination of the fistula shows it to be fairly firm in the distal to mid forearm softer cephalad. This improved after dilatation. It is to be noted that this was a very difficult fistula to insert. The patient has arterial calcification so a hole hadto be chiseled in the radial artery for anastomosis. PROCEDURE: PROCEDURE: After verifying the procedure and having obtained informed consent, the patient's left forearm and arm were prepared with Chlorhexidine and draped out with sterile linen. Local anesthesia infiltrated. Percutaneous access into the fistula ,[ antegrade], obtained about [3 cm] from the arteriovenous anastomosis using a micro puncture needle followed by micro puncture wire and then a micro puncture catheter. Angiogram demonstrated the aforementioned findings. Angioplasty was elected. A 0.035 [place] wire was inserted, and over this, a 6 [place] short introducer was placed, this was followed by a [7-mm] angioplasty balloon . Angioplasty was done at the culprit.. Inflating with a 3 mils syringe for a minute at a time.]. Completion angiogram demonstrated [satisfactory result]. The instrumentation was now \ withdrawn over hand pressure for 10 minutes. Dressings applied, procedure concluded. Exposure time:1.8 minutes. Radiation: 4.7 Jessica meng. Contrast: 5 minutes of Isovue-300, low osmolality. DICTATING PHYSICIAN: ANN TAVAREZ M.D. cc: ANN TAVAREZ M.D. ([id number]) >>
[2019-06-05 12:25] VITALS: BP 144/78
--- NOTE | 2019-06-05 15:18 | RADIOLOGY REPORT (SQ) ---
EXAM DESCRIPTION: FISTULAGRAM W/PLASTY COMPLETED DATE/TIME: 06/05/2019 10:44 am REASON FOR STUDY: T82.858A T82.858A STENOSIS OF OTHER VASCULAR PROSTH DEV/GRFT, INIT Z79.899 OTHER NURSING PROGRAM CHAIR (CURRENT) DRUG THERAPY COMPARISON: 09/19/2018. FLUOROSCOPY TIME: 1.8 minute. 140 images saved to PACS. TECHNIQUE: Intra-operative images acquired during surgical procedure to evaluate progress. NUMBER OF IMAGES: 140 images. LIMITATIONS: None. FINDINGS: Imaging in fluoroscopy during left upper extremity dialysis access evaluation and plasty b y Dr. Hutchison . Please refer to the operative report for further details. IMPRESSION: INTRA PROCEDURAL IMAGING ABOVE . COMMENT: Quality ID [id number]: Final reports for procedures using fluoroscopy that document radiation exp osure indices, or exposure time and number of fluorographic images (if radiation exposure indices are not available) Please consult full operative report of the attending physician for description of the procedure. TECHNICAL DOCUMENTATION: JOB ID: [id number] [employer]- All Rights Reserved Reading location - IP/workstation name: [email or web address]
[2019-06-05] MEDS ORDERED: OXYCODONE-ACETAMINOPHEN 5-325 MG TABLET PO PRN (20:24)
[2019-06-05] MEDS ORDERED: DIAZEPAM 5 MG TABLET PO PRN (20:24)
== END 2019-06-05 10:35 | disposition home or self-care (01) ==
LOC: CCL 06:36
PROVIDERS: ATTEND Surgery
DX: T82.858A Stenosis of other vascular prosthetic devices, implants and grafts, initial encounter (principal); Z79.899 Other long term (current) drug therapy; E11.22 Type 2 diabetes mellitus with diabetic chronic kidney disease; I13.2 Hypertensive heart and chronic kidney disease with heart failure and with stage 5 chronic kidney disease, or end stage renal disease; N18.6 End stage renal disease; Z99.2 Dependence on renal dialysis; I50.9 Heart failure, unspecified; Z79.4 Long term (current) use of insulin; Z01.818 Encounter for other preprocedural examination
CPT/HCPCS: 36415; 85025; 80048; 36902; 76937; C1752; Q9967; C1769; J3490 ×2; J1644 ×2; A9270 ×3; J1815; J2250; J3010